=== PATIENT | female | born 1950 | race Two or more races ===

== ENCOUNTER → 2016-05-16 | Outpatient (CLI) | payer OTHER ==
--- NOTE | 2016-05-16 10:40 | RADRPT ---
PROCEDURE: XR left knee. CLINICAL INDICATION: Knee pain TECHNIQUE: 4 views are available for review. COMPARISON: None available FINDINGS: There is severe osteoarthrosis involving the medial tibial femoral compartment and patellofemoral co mpartment and moderate osteoarthrosis involving the lateral tibial femoral compartment. This is asso ciated with joint space narrowing, subchondral sclerosis, varus deformity, lateral displacement of t he tibia on the femur and osteophytosis. There is otherwise normal mineralization, architecture and alignment. No fractures are identified. No osseous lesions are identified. The soft tissues are unremarkable. IMPRESSION: Severe osteoarthrosis involving the medial tibial femoral compartment and patellofemoral compartment and moderate osteoarthrosis involving the lateral tibial femoral compartment. RPTAT: HGDB .Bandar Chery MD, Date Time Electronically viewed and signed by .Bandar Chery MD, on 05/16/2016 10:40 .B/
== END | disposition home or self-care (01) ==
LOC: HKI 09:34
PROVIDERS: ATTEND Orthopaedic Surgery
DX: M17.12 Unilateral primary osteoarthritis, left knee (principal); Z96.651 Presence of right artificial knee joint
CPT/HCPCS: 73564; Z7500; G0463

== ENCOUNTER → 2016-07-08 | Outpatient (CLI) | payer OTHER ==
--- NOTE | 2016-07-08 14:23 | RADRPT ---
PROCEDURE: Limited x-ray of both lower extremities. CLINICAL INDICATION: Bilateral leg pain. TECHNIQUE: Single frontal view of both lower extremities was obtained from the hips to the calves. COMPARISON: None. FINDINGS: The hips are not well seen but appear grossly normal. There is a right knee total arthroplasty. Th ere are severe degenerative changes of the left knee with medial joint compartment narrowing and def ormity. There is mild lateral shift of the tibia. IMPRESSION: 1. Is not well seen. 2. Right knee total arthroplasty. 3. Severe degenerative changes of the left knee. RPTAT: QQ .Kike Vivar MD, MD Date Time Electronically viewed and signed by .Kike Vivar MD, on 07/08/2016 14:23 .R/
== END | disposition home or self-care (01) ==
LOC: HKI 09:51
PROVIDERS: ATTEND Orthopaedic Surgery
DX: M25.562 Pain in left knee (principal); M17.12 Unilateral primary osteoarthritis, left knee; Z96.651 Presence of right artificial knee joint
CPT/HCPCS: 77073; Z7500; G0463

== ENCOUNTER 2016-07-14 10:47 | Inpatient (IN) | payer OTHER ==
[2016-07-14] VITALS (32 sets, daily range): BP systolic 103–131; BP diastolic 55–70; PULSE 68–109; RESP 9–40; Ht 157.5 cm; Wt 81.5 kg
[~2016-07-14] VITALS: Ht 157.5 cm; Wt 81.5 kg
[~2016-07-14 10:47] MED LIST: BUPIVACAINE LIPOSOME/PF 266 MG/20 ML VIAL INFIL ONE; CEFAZOLIN 2GM/50 ML (PMX) 50 ML X1 BEFORE INCISION IVPB ONE; CELECOXIB 400 MG PO X1 DOSE PO ONE; EXPAREL NOTE (BUPIVICAINE LIPOSOMAL) XX SCH; LACTATED RINGER'S 1,000 ML IV SCH; PAIN COCKTAIL-CEFUROXIME IRR ONE; PREGABALIN 300 MG PO X1 PO ONE; SOD CHLORIDE 0.9% IV ONE; SOD CHLORIDE 0.9% IVPB ONE; TRANEXAMIC ACID IV ONE; TRANEXAMIC ACID IVPB ONE; oxyCODONE (CR) 10 MG TAB [oxyCONTIN] X1 DOSE PO ONE; traMADOL 50 MG TAB X 1 DOSE PO ONE
[2016-07-14] MEDS ORDERED: PROPOFOL 100 ML ONE (12:04)
[2016-07-14] MEDS ORDERED: CEFAZOLIN 1 GM INJ ONE (12:04)
[2016-07-14] MEDS ORDERED: METOCLOPRAMIDE 10 MG INJ ONE (12:06)
[2016-07-14] MEDS ORDERED: MIDAZOLAM 1 MG/ML 2 ML INJ ONE (12:06)
[2016-07-14] MEDS ORDERED: FENTAnyl 50 MCG/ML VIAL ONE (12:06)
[2016-07-14] MEDS ORDERED: DEXAMETHASONE 4 MG/ML 1 ML INJ ONE (12:06)
[2016-07-14] MEDS ORDERED: OMEP20CA16 PO (12:34)
[2016-07-14] MEDS ORDERED: LOSA1TAB20 PO (12:34)
[2016-07-14] MEDS ORDERED: AMLO2.5T78 PO (12:34)
[2016-07-14] MEDS ORDERED: LEVO50TA74 PO (12:34)
[2016-07-14] MEDS ORDERED: POLYMYXIN B 500000 UNIT INJ ONE (12:40)
[2016-07-14] MEDS ORDERED: VANCOMYCIN 1 GM INJ ONE (12:40)
[2016-07-14] MEDS ORDERED: SODIUM CL BACTERIOSTATIC 30 ML INJ ONE (12:40)
[2016-07-14] MEDS ORDERED: BACITRACIN 50000 UNITS INJ ONE (12:43)
--- NOTE | 2016-07-14 12:51 | HPN ---
Date/Time of Note Date/Time of Note DATE: 07/14/16 TIME: 12:50 Interval H&P Admission Note Pt. seen H&P reviewed: No system changes No change from [facility] on 07/07/16 by CYNTHIA Mckeon ERIK N. MD Jul 14, 2016 12:51
[2016-07-14] MEDS ORDERED: ONDANSETRON 4 MG INJ ONE (13:28)
[2016-07-14] MEDS ORDERED: SUCCINYLCHOLINE CHLORIDE 100 MG/5 ML SYG IV ONE (13:40)
[2016-07-14] MEDS ORDERED: EPHEDrine SULFATE 50 MG/5 ML SYG ONE (13:59)
[2016-07-14] MEDS ORDERED: hydrALAzine 20 MG INJ IV PRN (14:00)
[2016-07-14] MEDS ORDERED: DIPHENHYDRAMINE 50 MG INJ IV PRN (14:00)
[2016-07-14] MEDS ORDERED: METOCLOPRAMIDE 10 MG INJ IV PRN (14:00)
[2016-07-14] MEDS ORDERED: MEPERIDINE 25 MG INJ IV PRN (14:00)
[2016-07-14] MEDS ORDERED: LABETALOL HCL 20MG INJ IV PRN (14:00)
[2016-07-14] MEDS ORDERED: ONDANSETRON 4 MG INJ IV PRN ×2 (14:00→18:30)
[2016-07-14] MEDS ORDERED: HYDROmorphONE (0.2 MG/ML) 10ML SYG IV PRN ×3 (14:00)
[2016-07-14] MEDS ORDERED: BISACODYL 10 MG SUPP PR PRN (15:30)
[2016-07-14] MEDS ORDERED: ASPIRIN (EC) 325 MG TAB PO ONE (15:30)
[2016-07-14] MEDS ORDERED: NA PHOSPHATE/BIPHOS 133 ML ENEMA PR PRN (15:30)
[2016-07-14] MEDS ORDERED: NACL 0.9% 3 ML SYG IV SCH (15:30)
[2016-07-14] MEDS ORDERED: MAGNESIUM HYDROXIDE 30ML CUP PO PRN (15:30)
--- NOTE | 2016-07-14 15:42 | OPR ---
Date/Time of Note Date/Time of Note DATE: 07/14/16 TIME: 15:40 Operative Report Free Text/Dictation Dictation # [id number] Procedure Date: Jul 14, 2016 Preoperative Diagnosis Left Knee OA Postoperative Diagnosis Same Operation Performed Left TKA Surgeon: KRISTYN BUTLER MD printing assistant: ISAAK BALL PA-C Anesthesia: general, spinal Anesthesiologist: FAHEEM STEWART MD Tourniquet Time: 51 minutes Estimated Blood Loss: 50 - 100 ml's Specimens Bone and soft tissue Tubes/Drains Hemovac x 1 Complications: None Pt Condition Post Procedure: stable KRISTYN BUTLER MD Jul 14, 2016 15:42
[2016-07-14 15:50] LABS: HEMATOCRIT 34.9 % (37.0-47.0); HEMOGLOBIN 11.5 g/dl (12.0-16.0)
--- NOTE | 2016-07-14 16:01 | OPR ---
DATE OF OPERATION: 07/14/2016 PREOPERATIVE DIAGNOSIS: Left knee osteoarthritis. POSTOPERATIVE DIAGNOSIS: Left knee osteoarthritis. OPERATION PERFORMED: Left total knee arthroplasty. SURGEON: Kristyn Turcios MD PIT FURNACE MELTER: MCKENZIE Mckinney COMPONENTS USED: DePuy Attune size 4 narrow femoral component, size 3 tibial baseplate, 8 mm polyet hylene insert, and a 32 patellar button. ANESTHESIA: Spinal plus general endotracheal intubation, plus periarticular injection. ANESTHESIOLOGIST: Meghna Park MD TOURNIQUET TIME: 51 minutes. ESTIMATED BLOOD LOSS: 50 mL. INTRAVENOUS FLUIDS: 2 liters of crystalloids. SPECIMENS: Bone and soft tissue. DRAINS: Hemovac x1. COMPLICATIONS: None. DISPOSITION: The patient tolerated the procedure well and was taken to the recovery room in stable condition. INDICATIONS: The patient is a 65-year-old woman who has had progressive worsening pain in the left knee with radiographic evidence of severe osteoarthritis. She has failed nonsurgical means of treat ment to control her pain including activity modifications, pain medications, intra-articular injecti ons and ambulatory assist devices. Despite these measures, she has had worsening pain and I felt sh e would benefit from a total knee arthroplasty. The risks, benefits, and alternatives of the procedure were explained in detail to the patient. I e xplained the risks of the surgery to include but not be limited to, bleeding and possible need for b lood transfusion; infection; pain; stiffness; neurovascular injury with possible numbness, weakness, and/or paralysis anywhere from the knee down to the toes; fracture; instability; dislocation; wear and/or loosening of the prosthesis and possible need for future revision; blood clots; pulmonary emb olism; and anesthetic complications such as heart attack, stroke, GI bleed, pneumonia, and/or . Ample time was allowed for the patient to ask questions, all of which were addressed and answered. The patient understood the risks involved and wished to proceed. Informed consent was signed prior to the procedure. PROCEDURE: The patient's left knee was initialed with a marking pen in the preoperative area to khris ntify the correct operative site. The patient was brought to the operating room and transferred fro [facility] to the operating table where a spinal anesthetic was administered. T he patien t was then anesthetized and intubated. A Reis catheter was placed. A timeout was performed to con firm that the left leg was the correct operative site. The patient was given 2 g of Ancef within on e hour prior to the procedure. A tourniquet was placed on the operative proximal thigh. The operat afsaneh knee and lower extremity were prepped and draped in the usual sterile fashion. The operative lo wer extremity was elevated and exsanguinated with an Esmarch tourniquet. The proximal thigh tourniq uet was inflated to 300 mmHg. The knee was flexed. A midline incision was made and carried down through the subcutaneous tissue a nd fat with sharp dissection. Limited medial and lateral flaps were raised. A median parapatellar arthrotomy approach was performed. Synovial fluid was normal in color and consistency. The patella was everted and the knee flexed. There were severe tricompartmental osteoarthritic changes noted. A medial release was performed at the joint line to the midcoronal plane. The ACL and PCL and remnan ts of the menisci were excised. The stepped drill was used to open up the femoral canal which was i rrigated and sucked dry. The intramedullary guide susannah was passed up the femur, and the distal cutti ng block was pinned into place for a 6 degree valgus cut, taking 10 mm of bone off distally. The osc illating saw was used to make the cut. The tibia was subluxed anteriorly. The tibial cutoff jig was placed over the center of the talus d istally and over the junction of the medial and middle third of the tibial tubercle proximally. The guide was pinned into place and the oscillating saw was used to make the cut. The tibia was sized. The extension gap was checked and accommodated the 8 mm spacer block with the knee in full extensio n. There was no varus or valgus instability. At this point, the femur was sized with the posterior referencing guide. Two holes were drilled in 3 degrees of external rotation. The two holes were in line with the transepicondylar axis, perpendi cular to [place]'s line, and in line with the tibial cutoff jig brought up with the knee flexed 90 degrees and tensed with 2 lamina spreaders, suggesting the femoral rotation was correct. The four- in-one cutting block was pinned into place. The anterior and posterior cuts and chamfer cuts were m osorio with the oscillating saw. The flexion gap was checked and accommodated the 8 mm spacer block at 90 degrees. There was no varus or valgus instability, suggesting the flexion and extension gaps we re now equal. The central box was cut out on the femur. The tibia was drilled and punched in proper rotation. Tri al components were placed into position with a trial insert. The patella was cut from 21 mm down to 13 mm and sized. Three holes were drilled and the trial button placed in position. With all the t rials now in place, the knee was taken through range of motion and came to full extension as evidenc ed by the fact that with the foot on my abdomen and axial loading, there was no tendency for the kne e to flex. The knee was able to be flexed to 125 degrees with good patellar tracking with no latera l tilt or subluxation. At this point, I was satisfied with the overall range of motion, stability, and patellar tracking. The trials were removed. The real components were opened. Two bags of cement were mixed, one with and one without premixed antibiotic. The knee was irrigated with antibiotic saline and sucked dry. Once the cement was in a doughy stage, the real components were cemented into place. The knee was held in full extension, and the patellar component was held with a patellar clamp. All excess cemen t was removed with curettes. As the cement was hardening, the synovial/capsular layer was infiltrat ed with a mixture of 150 mg of 0.5% bupivacaine, 8 mg of Duramorph, 300 mcg of epinephrine, 30 mg of Toradol, 100 mcg of clonidine, 750 mg of cefuroxime and 86 mL of normal saline, followed by an inje ction of 266 mg of liposomal bupivacaine. A Hemovac drain was placed in the deep portion of the wound and brought out the anterolateral thigh. Once the cement was completely hardened, the trial liner was removed, and the real insert was open ed. The tourniquet was let down, and there was good hemostasis. The knee was then irrigated with a mixture of Betadine/saline and then antibiotic saline with pulsatile lavage. The real insert was impacted into the tibia and reduced onto to the femur. The arthrotomy was closed with a few interrupted #1 Ethibond in a [id number] fashion, and then closed in a watertight fashion with a running #2 Stratafix suture. Knee flexion was checked against gravity and came to 125 degrees. The subcutaneous layer was irrigated and closed with 2-0 Stratafi x, and then 3-0 Vicryl and then irina on the skin. The wound was covered with an occlusive dressi ng, and secured with cast padding and a bias dressing. The drain was secured with 3-0 nylon. The sponge and needle counts were correct at the end of the case. The patient was then awakened, ex tubated, and taken to the recovery room in stable condition. Dictated By: KRISTYN DUMONT/NTS Conf#: [id number] DID#: [id number]
[2016-07-14] MEDS: CEFAZOLIN 2 GM/50 ML (PMX) 50 ML IVPB SCH ×2 (16:26→23:11)
--- NOTE | 2016-07-14 16:29 | CONS ---
DATE OF ADMISSION: 07/14/2016 DATE OF CONSULTATION: 07/14/2016 IDENTIFICATION: This is a 65-year-old female. CHIEF COMPLAINT: Request for medical management status post left total knee replacement. HISTORY OF PRESENT ILLNESS: This is a 65-year-old female with past medical history based on records of obesity, osteoarthritis, hypothyroidism. hypertension and GERD who underwent left total knee rep lacement earlier today. Most of the information is obtained from the chart documentation as the pa mejia is presently in postop recovery somewhat lethargic. Apparently, the patient had been having l eft knee pain for many years and she has been followed by the orthopedic surgery team as an outpatie nt. Cortisone to cortisone steroid injections were attempted to help relieve the patient's symptoms ; however, apparently, this did not relieve the symptoms completely, so the decision was made for th e patient to undergo left total knee replacement which the patient had done earlier today. Presentl y, the patient is lying in bed, recovering from surgery, full review of systems cannot be obtained a t this time. PAST MEDICAL HISTORY: As stated above. ALLERGIES: NO KNOWN DRUG ALLERGIES. MEDICATIONS AT HOME: 1. Amlodipine 5 mg daily. 2. Losartan/hydrochlorothiazide 100/25 one tab daily. 3. Omeprazole 20 mg daily. 4. Levothyroxine 50 mcg every morning. PAST SURGICAL HISTORY: She had a right total knee replacement in the past. SOCIAL HISTORY: Negative for smoking, drinking, or IV drug abuse. FAMILY HISTORY: Noncontributory. PHYSICAL EXAMINATION: VITAL SIGNS: T-max 98.9, pulse 79 to 99, respirations 16, blood pressure is 112/57, saturating at 9 7% on 3 liters nasal cannula. GENERAL: The patient lying in bed, presently getting x-ray of the left knee, somewhat lethargic, in no acute distress. HEENT: Pupils equal, round, react to light. Extraocular muscles intact. NECK: Supple, no thyromegaly. LUNGS: Clear to auscultation bilaterally. CARDIOVASCULAR: S1, S2 heard. No rubs or gallops. ABDOMEN: Soft, nontender, nondistended. Normal bowel sounds. No rebound or guarding. MUSCULOSKELETAL: Decreased range of motion of left lower extremity. No lower extremity edema bilate rally. NEUROLOGIC: No focal deficits. LABORATORIES: There is no new CBC or BMP this admission presently. IMAGING: Left knee x-ray is pending. ASSESSMENT AND PLAN: A 55-year-old female status post left total knee replacement secondary to oste oarthritis. 1. Knee pain status post left total knee replacement. Continue to follow primary care team's recom mendations including pain control medications, physical therapy and labs. 2. Obesity: Monitor for now. 3. Hypothyroidism: Patient has been resumed on Synthroid medication. 4. Hypertension: Continue current blood pressure medicines as ordered by primary team. 5. Gastrointestinal prophylaxis: PPI. 6. Deep venous thrombosis prophylaxis: The patient is on high dose aspirin b.i.d. 7. History of gastroesophageal reflux disease: Again she is on PPI. We will continue to follow along with you. Dictated By: ANJELICA MARTINEZ Conf#: [id number] DID#: [id number]
[2016-07-14 16:44] LABS: CREATININE 0.54 mg/dl (0.44-1.00); POTASSIUM 3.1 mmol/L (3.5-5.1)
[2016-07-14 16:45] LABS: CALCIUM 8.7 mg/dl (8.4-10.2)
[2016-07-14] MEDS: traMADol 50 MG TAB PO SCH ×3 (17:34→23:11)
--- NOTE | 2016-07-14 18:02 | RADRPT ---
PROCEDURE: XR Left Knee. CLINICAL INDICATION: Left knee pain. Postop. TECHNIQUE: Two views. Frontal and lateral. COMPARISON: 05/16/2016. FINDINGS: There is no fracture or dislocation. Anterior skin irina and surgical drain are noted. Gas is present in the soft tissues anteriorly f rom the recent surgery. There is a total left knee arthroplasty which appears satisfactory. There is no lytic or blastic lesion. There is no joint effusion. IMPRESSION: 1. Satisfactory postoperative appearance of the left knee. RPTAT: QQ .Kike Vivar MD, MD Date Time Electronically viewed and signed by .Kike Vivar MD, MD on 07/14/2016 18:02 .R/
--- NOTE | 2016-07-14 18:08 | PN ---
Date/Time of Note Date/Time of Note DATE: 07/14/16 TIME: 18:05 Assessment/Plan Lines/Catheters IV Catheter Type (from Nrsg): Peripheral IV Bañuelos in Place (from Nrsg): Yes Assessment/Plan Assessment/Plan Stable in PACU, s/p left TKA -continue abx until drains removed -pain meds as needed -ASA/SCDs for DVT prophylaxis -OOB with PT -check AM labs -monitor drain -d/c bañuelos in AM XR of the left knee reveals good alignment with no evidence of fracture or dislocation Subjective 24 Hr Interval Summary Stable in PACU. Denies pain. Moving all extremities. Exam/Review of Systems Vital Signs Vitals Vital Signs Date Time Temp Pulse Resp B/P Pulse Ox O2 Delivery O2 Flow Rate FiO2 07/14/16 16:56 98 9 107/61 98 Nasal Cannula 2.0 07/14/16 16:52 98.0 Exam Free Text/Dictation Hemovac: minimal Dressing dry Incision clean, dry, and intact without redness or drainage Thigh soft 5/5 Quadriceps, Tibialis Anterior, EHL, Gastroc, Soleus, Peroneals Normal sensation Palpable DT/PT, CR <2 sec No distal edema Results Result Diagram: 07/14/16 1535 07/14/16 1535 ISAAK BALL PA-C Jul 14, 2016 18:08
[2016-07-14] MEDS: PANTOPRAZOLE (EC) 40 MG TAB PO SCH (18:16)
[2016-07-14] MEDS: ACETAMINOPHEN 1000MG/100ML IV 100 ML IVPB SCH (18:16)
[2016-07-14] MEDS: LACTATED RINGER'S 1,000 ML IV SCH ×2 (18:17→23:10)
[2016-07-14] MEDS ORDERED: HYDROmorphONE 1 MG/ML SYG IV PRN (18:30)
[2016-07-14] MEDS ORDERED: oxyCODONE 5 MG TAB PO PRN ×2 (18:30)
[2016-07-14] MEDS ORDERED: DIPHENHYDRAMINE 25 MG CAP PO PRN (18:30)
[2016-07-14] MEDS ORDERED: TRANEXAMIC ACID 820 MG in SOD CHLORIDE 0.9% 100 ML IVPB ONE ×2 (18:30→21:30)
[2016-07-14] MEDS: PREGABALIN 50 MG CAP PO SCH (20:05)
[2016-07-14] MEDS: DOCUSATE SODIUM 100 MG CAP PO SCH (20:05)
[2016-07-14] MEDS ORDERED: POTASSIUM CHLORIDE (SR) 20 MEQ TAB PO STA (21:46)
[2016-07-15] MEDS: ACETAMINOPHEN 1000MG/100ML IV 100 ML IVPB SCH ×3 (00:08→12:25)
[2016-07-15 05:04] LABS: HEMATOCRIT 35.6 % (37.0-47.0); HEMOGLOBIN 11.6 g/dl (12.0-16.0)
[2016-07-15 05:11] LABS: POTASSIUM 4.4 mmol/L (3.5-5.1)
[2016-07-15 05:13] LABS: CREATININE 0.47 mg/dl (0.44-1.00)
[2016-07-15 05:14] LABS: CALCIUM 8.8 mg/dl (8.4-10.2)
[2016-07-15] MEDS: traMADol 50 MG TAB PO SCH ×4 (05:20→23:28)
[2016-07-15] MEDS: PANTOPRAZOLE (EC) 40 MG TAB PO SCH ×2 (05:20→17:33)
[2016-07-15] MEDS: LACTATED RINGER'S 1,000 ML IV SCH ×3 (06:11→21:56)
[2016-07-15] MEDS: LEVOTHYROXINE 50 MCG TAB PO SCH (06:11)
[2016-07-15] MEDS: CEFAZOLIN 2 GM/50 ML (PMX) 50 ML IVPB SCH (07:43)
[2016-07-15 08:00] VITALS: BP 109/58; RESP 18
[2016-07-15 08:45] VITALS: BP 114/56; PULSE 65; RESP 20
[2016-07-15] MEDS: CELECOXIB 200 MG CAP PO SCH (08:57)
[2016-07-15] MEDS: PREGABALIN 50 MG CAP PO SCH ×2 (08:57→20:56)
[2016-07-15] MEDS: DOCUSATE SODIUM 100 MG CAP PO SCH ×2 (08:57→20:56)
[2016-07-15] MEDS: ASPIRIN (EC) 325 MG TAB PO SCH ×2 (08:57→20:56)
[2016-07-15] MEDS: AMLODIPINE 2.5 MG TAB PO SCH (08:58)
[2016-07-15] MEDS: LOSARTAN 50 MG TAB PO SCH (08:58)
[2016-07-15] MEDS: HYDROCHLOROTHIAZIDE 25 MG TAB PO SCH (08:59)
--- NOTE | 2016-07-15 09:07 | PN ---
Date/Time of Note Date/Time of Note DATE: 07/15/16 TIME: 09:06 Assessment/Plan Lines/Catheters IV Catheter Type (from Nrsg): Peripheral IV Reis in Place (from Nrsg): Yes Assessment/Plan Assessment/Plan Stable POD #1, s/p left TKA -d/c abx -pain meds as needed -ASA/SCDs -OOB with PT -drain removed -check AM labs -discharge planning. Will plan to go home upon discharge Subjective 24 Hr Interval Summary No acute overnight events. Denies pain. Did not start PT yesterday. VSS, afebrile. Will plan to go home upon discharge Exam/Review of Systems Vital Signs Vitals Vital Signs Date Time Temp Pulse Resp B/P Pulse Ox O2 Delivery O2 Flow Rate FiO2 07/15/16 08:00 98.7 67 18 109/58 97 07/14/16 23:28 Room Air 2.0 Intake and Output 07/14/16 07/14/16 07/15/16 15:00 23:00 07:00 Intake Total 1200 ml 1358.2 ml 500 ml Output Total 40 ml 510 ml 1450 ml Balance 1160 ml 848.2 ml -950 ml Exam Free Text/Dictation Hemovac: 100cc Dressing dry Incision clean, dry, and intact without redness or drainage Thigh soft 5/5 Quadriceps, Tibialis Anterior, EHL, Gastroc, Soleus, Peroneals Normal sensation Palpable DT/PT, CR <2 sec No distal edema Results Result Diagram: 07/15/1642907/15/16429 ISAAK BALL PA-C Jul 15, 2016 09:07
[2016-07-15 10:08] LABS: ADD UMIC NO; URINE BILIRUBIN (Dip) NEGATIVE (NEGATIVE); URINE BLOOD (Dip) NEGATIVE (NEGATIVE); URINE COLOR LT. YELLOW (YELLOW); URINE GLUCOSE (Dip) NEGATIVE (NEGATIVE); URINE KETONES (Dip) NEGATIVE (NEGATIVE); URINE LEUKOCYTE ESTERASE (Dip) NEGATIVE (NEGATIVE); URINE NITRITE (Dip) NEGATIVE (NEGATIVE); URINE TOTAL PROTEIN (Dip) NEGATIVE (NEGATIVE); URINE UROBILINOGEN (Dip) 0.2 E.U./dL (0.1-1.0)
--- NOTE | 2016-07-15 11:50 | CONS ---
Date/Time of Note Date/Time of Note DATE: 07/15/16 TIME: 11:49 Consult Date/Type/Reason Admit Date/Time Jul 14, 2016 at 10:47 Initial Consult Date Subjective Pt worked with [facility] per nursing. Objective Vital Signs Date Time Temp Pulse Resp B/P Pulse Ox O2 Delivery O2 Flow Rate FiO2 07/15/16 08:45 65 20 114/56 98 Room Air 07/15/16 08:00 98.7 07/14/16 23:28 2.0 Intake and Output 07/14/16 07/14/16 07/15/16 15:00 23:00 07:00 Intake Total 1200 ml 1358.2 ml 500 ml Output Total 40 ml 510 ml 1450 ml Balance 1160 ml 848.2 ml -950 ml Exam GENERAL: The patient lying in bed, presently getting x-ray of the left knee, somewhat lethargic, in no acute distress. HEENT: Pupils equal, round, react to light. Extraocular muscles intact. NECK: Supple, no thyromegaly. LUNGS: Clear to auscultation bilaterally. CARDIOVASCULAR: S1, S2 heard. No rubs or gallops. ABDOMEN: Soft, nontender, nondistended. Normal bowel sounds. No rebound or guarding. MUSCULOSKELETAL: Decreased range of motion of left lower extremity. No lower extremity edema bilaterally. NEUROLOGIC: No focal deficits. Results/Medications Result Diagram: 07/15/16 0430 07/15/16 0430 Results 24 hrs Laboratory Tests Test 07/14/16 15:35 07/15/16 04:30 07/15/16 05:30 Hemoglobin 11.5 L 11.6 L Hematocrit 34.9 L 35.6 L Sodium Level 139 138 Potassium Level 3.1 L 4.4 Chloride Level 101 99 Carbon Dioxide Level 29 31 Anion Gap 12 12 Blood Urea Nitrogen 11 12 Creatinine 0.54 0.47 Glucose Level 188 177 Calcium Level 8.7 8.8 Urine Color LT. YELLOW Urine Clarity CLEAR Urine pH 6.0 Urine Specific Odin 1.020 Urine Ketones NEGATIVE Urine Nitrite NEGATIVE Urine Bilirubin NEGATIVE Urine Urobilinogen 0.2 E.U./dL Urine Leukocyte Esterase NEGATIVE Urine Hemoglobin NEGATIVE Urine Glucose NEGATIVE Urine Total Protein NEGATIVE Medications Current Medications Amlodipine Besylate (Norvasc) 5 mg DAILY PO Last administered on 07/15/16t 08: 58; Admin Dose 5 MG; Start 07/15/16 at 09:00 Losartan Potassium 100 mg 100 mg DAILY PO Last administered on 07/15/16 08:58 ; Admin Dose 100 MG; Start 07/15/16 at 09:00 Lactated Ringer's (Lr) 1,000 ml @ 125 mls/hr Q8H IV Last administered on 06:11; Admin Dose 125 MLS/HR; Start 07/14/16 at 15:19 Celecoxib 200 mg 200 mg DAILY PO Last administered on 07/15/16 08:57; Admin Dose 200 MG; Start 07/15/16 at 09:00 Acetaminophen (Ofirmev 1000mg/ 100ml Iv) 100 ml @ 400 mls/hr Q6 IVPB Last administered on 07/15/16 05:20; Admin Dose 400 MLS/HR; Start 07/14/16 at 18:00 ; Stop 07/15/16 at 17:59 Tramadol HCl (Ultram) 50 mg Q6 PO Last administered on 07/15/16 05:20; Admin Dose 50 MG; Start 07/14/16 at 12:00; Stop 07/17/16 at 11:59 Oxycodone HCl (Roxicodone) 5 mg Q4H PRN PO PAIN LEVEL 1-3; Start 07/14/16 at 18 :30 Oxycodone HCl (Roxicodone) 10 mg Q4H PRN PO PAIN LEVEL 4-7; Start 07/14/16 at 18:30 Hydromorphone HCl (Dilaudid) 1 mg Q3H PRN IV PAIN LEVEL 8-10; Start 07/14/16 at 18:30 Ondansetron HCl (Zofran Inj) 4 mg Q6H PRN IV NAUSEA AND/OR VOMITING Last administered on 07/15/16 07:43; Admin Dose 4 MG; Start 07/14/16 at 18:30 Bisacodyl (Dulcolax Supp) 10 mg Q12H PRN [place] CONSTIPATION; Start 07/14/16 at 15: 30 Magnesium Hydroxide (Milk Of Mag) 30 ml BID PRN PO CONSTIPATION; Start at 15:30 Sodium Biphosphate/ Sodium Phosphate (Fleet Enema) 133 ml DAILY PRN [place] CONSTIPATION; Start 07/14/16 at 15:30 Docusate Sodium (Colace) 100 mg BID PO Last administered on 07/15/16 08:57; Admin Dose 100 MG; Start 07/14/16 at 21:00 Diphenhydramine HCl (Benadryl) 25 mg Q6H PRN PO PRURITUS; Start 07/14/16 at 18: 30 Aspirin (Ecotrin) 325 mg BID PO Last administered on 07/15/16 08:57; Admin Dose 325 MG; Start 07/15/16 at 09:00 Pantoprazole (Protonix Tab) 40 mg BID@06,18 PO Last administered on 07/15/16 05:20; Admin Dose 40 MG; Start 07/14/16 at 18:00 Pregabalin (Lyrica) 50 mg BID PO Last administered on 07/15/16 08:57; Admin Dose 50 MG; Start 07/14/16 at 21:00 Hydrochlorothiazide (Hydrochlorothiazide) 25 mg DAILY PO Last administered on 08:59; Admin Dose 25 MG; Start 07/15/16 at 09:00 Assessment/Plan Chief Complaint/Hosp Course ASSESSMENT AND PLAN: 55-year-old female status post left total knee replacement secondary to osteoarthritis POD # 1. 1. Knee pain status post left total knee replacement - POD # 1 - Continue to follow primary care team's recommendations including pain control medications, physical therapy and labs. 2. Obesity: Monitor for now. 3. Hypothyroidism: Patient has been resumed on Synthroid medication. 4. Hypertension: Continue current blood pressure medicines as ordered by primary team. 5. Gastrointestinal prophylaxis: PPI. 6. Deep venous thrombosis prophylaxis: The patient is on high dose aspirin b.i.d. 7. History of gastroesophageal reflux disease - PPI. We will continue to follow along with you. Problems: ANJELICA GALLO Jul 15, 2016 11:50
--- NOTE | 2016-07-15 16:14 | PDOCDIS ---
Discharge Instructions DIAGNOSIS Discharge Diagnosis: s/p left TKA CONDITION Patient Condition: Good HOME CARE INSTRUCTIONS: Diet Instructions: Regular ACTIVITY: Activity Restrictions: Slowly Increase Activity Rest between Activity Avoid heavy lifting Do not operate Machinery Do not operate Power Tool Avoid Heavy Housework Keep Limb Elevated Bathing Restrictions: Shower FOLLOW UP/APPOINTMENTS Appointments follow up in the office on 07/25/16 OTHER ORDERS: Other Orders: S/P TKA Physical Therapy: Three times per week at home x 2 weeks Daily in Rehab/SNF WB STATUS: WBAT 1. Strengthening exercises for both upper and un-operated lower extremities. 2. Gait training with front wheeled walker 3. Active range of motion exercises to operative knee. 4. When not working on knee range of motion exercises, distal towel roll under operative ankle/distal calf to promote full extension. 5. DO NOT PUT ANYTHING BEHIND OPERATIVE KNEE!!! 6. Quadriceps and hamstring strengthening. 7. May switch to cane in contra lateral hand 6 weeks after surgery. 8. Physical Therapy can open case if nursing is not available. 9. Use Ice Machine as instructed from date of surgery while at rest 3X/day. 10. Patient requires mobile SCDs to reduce risk of developing DVT following TKA. Patient will use the mobile SCDs for 30 days postoperatively. Bathing assistance by home health aide twice weekly if Medicare patient. Occupational Therapy: Evaluation for assistive devices and ADL training. Wound Care: Keep incision dry & covered with Tegaderm until first visit with Dr. Turcios Anticoagulation Orders: Enteric Coated Aspirin 325 mg po bid x 6 weeks from date of surgery Follow-up:Call for an appointment with Dr. Turcios in 1 week after discharged from hospital at DME Orders: SELENA, 3-in-1 Commode, Polar ice machine, Mobile SCDs ISAAK BALL PA-C Jul 15, 2016 16:14
[2016-07-15] MEDS ORDERED: ASPI325T32 PO (16:15)
[2016-07-15] MEDS ORDERED: HYDR-905 PO (16:15)
[2016-07-15] MEDS ORDERED: TRAM50TA2 PO (16:15)
[2016-07-15] MEDS ORDERED: PREG50CA PO (16:15)
--- NOTE | 2016-07-15 17:13 | PN ---
Date/Time of Note Date/Time of Note DATE: 07/15/16 TIME: 17:10 Assessment/Plan VTE Prophylaxis VTE Prophylaxis Intervention: SCD's Lines/Catheters IV Catheter Type (from Nrs): Peripheral IV Urinary Cath still in place: Yes Subjective 24 Hr Interval Summary Free Text/Dictation Anesthesia Note: A 65 year female s/p left knee arthroplasty underGA and spinal, pod #1 doing good. no pain, headache, itching. this morning felt nauseous after a medicine was given which was resolved with antiemetic. back is clean. further care by surgery team. Exam/Review of Systems Vital Signs Vitals Vital Signs Date Time Temp Pulse Resp B/P Pulse Ox O2 Delivery O2 Flow Rate FiO2 07/15/16 08:45 65 20 114/56 98 Room Air 07/15/16 08:00 98.7 07/14/16 23:28 2.0 Intake and Output 07/14/16 07/14/16 07/15/16 15:00 23:00 07:00 Intake Total 1200 ml 1358.2 ml 500 ml Output Total 40 ml 510 ml 1450 ml Balance 1160 ml 848.2 ml -950 ml Results Result Diagram: 07/15/16 0430 07/15/16 0430 Results 24 hrs Laboratory Tests Test 07/15/16 04:30 07/15/16 05:30 Hemoglobin 11.6 L Hematocrit 35.6 L Sodium Level 138 Potassium Level 4.4 Chloride Level 99 Carbon Dioxide Level 31 Anion Gap 12 Blood Urea Nitrogen 12 Creatinine 0.47 Glucose Level 177 Calcium Level 8.8 Urine Color LT. YELLOW Urine Clarity CLEAR Urine pH 6.0 Urine Specific [place] 1.020 Urine Ketones NEGATIVE Urine Nitrite NEGATIVE Urine Bilirubin NEGATIVE Urine Urobilinogen 0.2 E.U./dL Urine Leukocyte Esterase NEGATIVE Urine Hemoglobin NEGATIVE Urine Glucose NEGATIVE Urine Total Protein NEGATIVE Medications Medications Current Medications Amlodipine Besylate (Norvasc) 5 mg DAILY PO Last administered on 07/15/16 08: 58; Admin Dose 5 MG; Start 07/15/16 at 09:00 Losartan Potassium 100 mg 100 mg DAILY PO Last administered on 07/15/16 08:58 ; Admin Dose 100 MG; Start 07/15/16 at 09:00 Lactated Ringer's (Lr) 1,000 ml @ 125 mls/hr Q8H IV Last administered on 06:11; Admin Dose 125 MLS/HR; Start 07/14/16 at 15:19 Celecoxib 200 mg 200 mg DAILY PO Last administered on 07/15/16 08:57; Admin Dose 200 MG; Start 07/15/16 at 09:00 Acetaminophen (Ofirmev 1000mg/ 100ml Iv) 100 ml @ 400 mls/hr Q6 IVPB Last administered on 07/15/16 12:25; Admin Dose 400 MLS/HR; Start 07/14/16 at 18:00 ; Stop 07/15/16 at 17:59 Tramadol HCl (Ultram) 50 mg Q6 PO Last administered on 07/15/16 12:25; Admin Dose 50 MG; Start 07/14/16 at 12:00; Stop 07/17/16 at 11:59 Oxycodone HCl (Roxicodone) 5 mg Q4H PRN PO PAIN LEVEL 1-3; Start 07/14/16 at 18 :30 Oxycodone HCl (Roxicodone) 10 mg Q4H PRN PO PAIN LEVEL 4-7; Start 07/14/16 at 18:30 Hydromorphone HCl (Dilaudid) 1 mg Q3H PRN IV PAIN LEVEL 8-10; Start 07/14/16 at 18:30 Ondansetron HCl (Zofran Inj) 4 mg Q6H PRN IV NAUSEA AND/OR VOMITING Last administered on 07/15/16 07:43; Admin Dose 4 MG; Start 07/14/16 at 18:30 Bisacodyl (Dulcolax Supp) 10 mg Q12H PRN [place] CONSTIPATION; Start 07/14/16 at 15: 30 Magnesium Hydroxide (Milk Of Mag) 30 ml BID PRN PO CONSTIPATION; Start at 15:30 Sodium Biphosphate/ Sodium Phosphate (Fleet Enema) 133 ml DAILY PRN [place] CONSTIPATION; Start 07/14/16 at 15:30 Docusate Sodium (Colace) 100 mg BID PO Last administered on 07/15/16 08:57; Admin Dose 100 MG; Start 07/14/16 at 21:00 Diphenhydramine HCl (Benadryl) 25 mg Q6H PRN PO PRURITUS; Start 07/14/16 at 18: 30 Aspirin (Ecotrin) 325 mg BID PO Last administered on 07/15/16 08:57; Admin Dose 325 MG; Start 07/15/16 at 09:00 Pantoprazole (Protonix Tab) 40 mg BID@06,18 PO Last administered on 07/15/16 05:20; Admin Dose 40 MG; Start 07/14/16 at 18:00 Pregabalin (Lyrica) 50 mg BID PO Last administered on 07/15/16 08:57; Admin Dose 50 MG; Start 07/14/16 at 21:00 Hydrochlorothiazide (Hydrochlorothiazide) 25 mg DAILY PO Last administered on 08:59; Admin Dose 25 MG; Start 07/15/16 at 09:00 FAHEEM STEWART MD Jul 15, 2016 17:13
[2016-07-15 19:00] VITALS: BP 122/60; RESP 19
[2016-07-15 19:51] VITALS: BP 117/68; PULSE 72; RESP 18
[2016-07-16 05:26] LABS: HEMOGLOBIN 10.8 g/dl (12.0-16.0)
[2016-07-16 05:36] LABS: POTASSIUM 4.3 mmol/L (3.5-5.1)
[2016-07-16 05:39] LABS: CREATININE 0.62 mg/dl (0.44-1.00)
[2016-07-16 05:40] LABS: CALCIUM 8.2 mg/dl (8.4-10.2)
[2016-07-16] MEDS: PANTOPRAZOLE (EC) 40 MG TAB PO SCH ×2 (06:04→18:23)
[2016-07-16] MEDS: traMADol 50 MG TAB PO SCH ×4 (06:04→23:54)
[2016-07-16] MEDS: LEVOTHYROXINE 50 MCG TAB PO SCH (06:04)
[2016-07-16] MEDS: LACTATED RINGER'S 1,000 ML IV SCH ×3 (06:05→22:13)
[2016-07-16 07:57] VITALS: BP 108/56; RESP 15
[2016-07-16] MEDS: PREGABALIN 50 MG CAP PO SCH ×2 (08:39→20:28)
[2016-07-16] MEDS: AMLODIPINE 2.5 MG TAB PO SCH (08:39)
[2016-07-16] MEDS: CELECOXIB 200 MG CAP PO SCH (08:39)
[2016-07-16] MEDS: ASPIRIN (EC) 325 MG TAB PO SCH ×2 (08:39→20:28)
[2016-07-16] MEDS: DOCUSATE SODIUM 100 MG CAP PO SCH ×2 (08:40→20:28)
[2016-07-16] MEDS: LOSARTAN 50 MG TAB PO SCH (08:40)
[2016-07-16] MEDS: HYDROCHLOROTHIAZIDE 25 MG TAB PO SCH (08:40)
--- NOTE | 2016-07-16 10:02 | PN ---
Date/Time of Note Date/Time of Note DATE: 07/16/16 TIME: 10:01 Assessment/Plan Lines/Catheters IV Catheter Type (from Nrsg): Saline Lock Reis in Place (from Nrsg): Yes Assessment/Plan Assessment/Plan Stable POD #2, s/p left TKA -pain meds as needed. Will switch to [place] from oxycodone -ASA/SCDs for DVT prophylaxis -OOB with PT -dressing changed -check AM labs -d/c planning. Will likely go home tomorrow Subjective 24 Hr Interval Summary No acute overnight events. Mild pain last night to left knee. Progressing with PT. VSS, afebrile. Would like to go home tomorrow. Exam/Review of Systems Vital Signs Vitals Vital Signs Date Time Temp Pulse Resp B/P Pulse Ox O2 Delivery O2 Flow Rate FiO2 07/16/16 07:57 97.7 72 15 108/56 98 07/15/16 19:51 Room Air 07/14/16 23:28 2.0 Intake and Output 07/15/16 07/15/16 07/16/16 15:00 23:00 07:00 Intake Total 150 ml 1700 ml 1000 ml Output Total 1100 ml Balance 150 ml 1700 ml -100 ml Exam Free Text/Dictation Dressing dry Incision clean, dry, and intact without redness or drainage Thigh soft 5/5 Quadriceps, Tibialis Anterior, EHL, Gastroc, Soleus, Peroneals Normal sensation Palpable DT/PT, CR <2 sec No distal edema Results Result Diagram: 07/16/16 0450 07/16/16 0450 ISAAK BALL PA-C Jul 16, 2016 10:02
--- NOTE | 2016-07-16 13:02 | CONS ---
Date/Time of Note Date/Time of Note DATE: 07/16/16 TIME: 13:01 Consult Date/Type/Reason Admit Date/Time Jul 14, 2016 at 10:47 Subjective Seen by ortho team today. Objective Vital Signs Date Time Temp Pulse Resp B/P Pulse Ox O2 Delivery O2 Flow Rate FiO2 07/16/16 07:57 97.7 72 15 108/56 98 07/15/16 19:51 Room Air 07/14/16 23:28 2.0 Intake and Output 07/15/16 07/15/16 07/16/16 15:00 23:00 07:00 Intake Total 150 ml 1700 ml 1000 ml Output Total 1100 ml Balance 150 ml 1700 ml -100 ml Exam GENERAL: The patient lying in bed, in no acute distress. HEENT: Pupils equal, round, react to light. Extraocular muscles intact. NECK: Supple, no thyromegaly. LUNGS: Clear to auscultation bilaterally. CARDIOVASCULAR: S1, S2 heard. No rubs or gallops. ABDOMEN: Soft, nontender, nondistended. Normal bowel sounds. No rebound or guarding. MUSCULOSKELETAL: less decreased range of motion of left lower extremity. No lower extremity edema bilaterally. NEUROLOGIC: No focal deficits. Results/Medications Result Diagram: 07/16/16 0450 07/16/16 0450 Results 24 hrs Laboratory Tests Test 07/16/16 04:50 Hemoglobin 10.8 L Hematocrit 34.0 L Sodium Level 138 Potassium Level 4.3 Chloride Level 100 Carbon Dioxide Level 33 H Anion Gap 9 Blood Urea Nitrogen 16 Creatinine 0.62 Glucose Level 123 # Calcium Level 8.2 L Medications Current Medications Amlodipine Besylate (Norvasc) 5 mg DAILY PO Last administered on 07/16/16 08:39 ; Admin Dose 5 MG; Start 07/15/16 at 09:00 Losartan Potassium 100 mg 100 mg DAILY PO Last administered on 07/16/16 08:40; Admin Dose 100 MG; Start 07/15/16 at 09:00 Lactated Ringer's (Lr) 1,000 ml @ 125 mls/hr Q8H IV Last administered on 06:11; Admin Dose 125 MLS/HR; Start 07/14/16 at 15:19 Celecoxib (Celebrex) 200 mg DAILY PO Last administered on 07/16/16 08:39; Admin Dose 200 MG; Start 07/15/16 at 09:00 Tramadol HCl (Ultram) 50 mg Q6 PO Last administered on 07/16/16 12:35; Admin Dose 50 MG; Start 07/14/16 at 12:00; Stop 07/17/16 at 11:59 Hydromorphone HCl (Dilaudid) 1 mg Q3H PRN IV PAIN LEVEL 8-10 Last administered on 07/15/16 22:47; Admin Dose 1 MG; Start 07/14/16 at 18:30 Ondansetron HCl (Zofran Inj) 4 mg Q6H PRN IV NAUSEA AND/OR VOMITING Last administered on 07/15/16 07:43; Admin Dose 4 MG; Start 07/14/16 at 18:30 Bisacodyl (Dulcolax Supp) 10 mg Q12H PRN [place] CONSTIPATION; Start 07/14/16 at 15: 30 Magnesium Hydroxide (Milk Of Mag) 30 ml BID PRN PO CONSTIPATION; Start at 15:30 Sodium Biphosphate/ Sodium Phosphate (Fleet Enema) 133 ml DAILY PRN [place] CONSTIPATION; Start 07/14/16 at 15:30 Docusate Sodium (Colace) 100 mg BID PO Last administered on 07/16/16 08:40; Admin Dose 100 MG; Start 07/14/16 at 21:00 Diphenhydramine HCl (Benadryl) 25 mg Q6H PRN PO PRURITUS; Start 07/14/16 at 18: 30 Aspirin (Ecotrin) 325 mg BID PO Last administered on 07/16/16 08:39; Admin Dose 325 MG; Start 07/15/16 at 09:00 Pantoprazole (Protonix Tab) 40 mg BID@06,18 PO Last administered on 07/16/16 06 :04; Admin Dose 40 MG; Start 07/14/16 at 18:00 Pregabalin (Lyrica) 50 mg BID PO Last administered on 07/16/16 08:39; Admin Dose 50 MG; Start 07/14/16 at 21:00 Hydrochlorothiazide (Hydrochlorothiazide) 25 mg DAILY PO Last administered on 08:40; Admin Dose 25 MG; Start 07/15/16 at 09:00 Acetaminophen/ Hydrocodone Bitart ([place] (7.5-325)) 1 tab Q4H PRN PO PAIN; Start 07/16/16 at 10:00 Assessment/Plan Chief Complaint/Hosp Course ASSESSMENT AND PLAN: 55-year-old female status post left total knee replacement secondary to osteoarthritis POD # 2. 1. Knee pain status post left total knee replacement - POD # 2. - Continue to follow primary care team's recommendations including pain control medications, physical therapy and labs. 2. Obesity: Monitor for now. 3. Hypothyroidism: Patient has been resumed on Synthroid medication. 4. Hypertension: Continue current blood pressure medicines as ordered by primary team. 5. Gastrointestinal prophylaxis: PPI. 6. Deep venous thrombosis prophylaxis: The patient is on high dose aspirin b.i.d. 7. History of gastroesophageal reflux disease - PPI. We will continue to follow along with you. Problems: ANJELICA GALLO Jul 16, 2016 13:02
[2016-07-16 19:00] VITALS: BP_SYST 131; BP_SYST 182; BP_DIAS 59; BP_DIAS 77; RESP 18; RESP 19
[2016-07-16 20:56] VITALS: BP 108/58; PULSE 74; RESP 18
[2016-07-17] MEDS: PANTOPRAZOLE (EC) 40 MG TAB PO SCH ×2 (06:05→17:18)
[2016-07-17] MEDS: LACTATED RINGER'S 1,000 ML IV SCH ×3 (06:06→23:19)
[2016-07-17] MEDS: traMADol 50 MG TAB PO SCH (06:06)
[2016-07-17] MEDS: LEVOTHYROXINE 50 MCG TAB PO SCH (06:06)
[2016-07-17 06:35] LABS: HEMATOCRIT 33.5 % (37.0-47.0); HEMOGLOBIN 10.9 g/dl (12.0-16.0)
[2016-07-17 06:40] LABS: POTASSIUM 4.1 mmol/L (3.5-5.1)
[2016-07-17 06:42] LABS: CREATININE 0.52 mg/dl (0.44-1.00)
[2016-07-17 06:43] LABS: CALCIUM 8.4 mg/dl (8.4-10.2)
[2016-07-17 07:51] VITALS: BP 132/65; RESP 15
[2016-07-17] MEDS: ASPIRIN (EC) 325 MG TAB PO SCH ×2 (08:20→19:57)
[2016-07-17] MEDS: DOCUSATE SODIUM 100 MG CAP PO SCH ×2 (08:20→19:58)
[2016-07-17] MEDS: CELECOXIB 200 MG CAP PO SCH (08:20)
[2016-07-17] MEDS: PREGABALIN 50 MG CAP PO SCH ×2 (08:20→19:58)
[2016-07-17] MEDS: AMLODIPINE 2.5 MG TAB PO SCH (08:22)
[2016-07-17] MEDS: HYDROCHLOROTHIAZIDE 25 MG TAB PO SCH (08:23)
[2016-07-17] MEDS: LOSARTAN 50 MG TAB PO SCH (08:23)
--- NOTE | 2016-07-17 10:17 | PN ---
Date/Time of Note Date/Time of Note DATE: 07/17/16 TIME: 10:15 Assessment/Plan Lines/Catheters IV Catheter Type (from Nrsg): Saline Lock Reis in Place (from Nrsg): No Assessment/Plan Assessment/Plan Stable POD #3, s/p left TKA -pain meds as needed -ASA/SCDs for DVT prophylaxis -OOB with PT -check AM labs -dressing changed -will plan to d/c home tomorrow Subjective 24 Hr Interval Summary No acute overnight events. Pain better controlled with norco. Having some dizziness with standing, likely secondary to pain medication. Progressing well with PT. Would like to go home tomorrow. Exam/Review of Systems Vital Signs Vitals Vital Signs Date Time Temp Pulse Resp B/P Pulse Ox O2 Delivery O2 Flow Rate FiO2 07/17/16 07:51 97.8 75 15 132/65 96 07/16/16 20:56 Room Air 07/14/16 23:28 2.0 Intake and Output 07/16/16 07/16/16 07/17/16 15:00 23:00 07:00 Intake Total 1120 ml 1100 ml Output Total 400 ml 900 ml Balance 720 ml 200 ml Exam Free Text/Dictation Dressing dry Incision clean, dry, and intact without redness or drainage Thigh soft 5/5 Quadriceps, Tibialis Anterior, EHL, Gastroc, Soleus, Peroneals Normal sensation Palpable DT/PT, CR <2 sec No distal edema Results Result Diagram: 07/17/16 0459 07/17/16 0459 ISAAK BALL PA-C Jul 17, 2016 10:17
--- NOTE | 2016-07-17 11:08 | CONS ---
Date/Time of Note Date/Time of Note DATE: 07/17/16 TIME: 11:07 Consult Date/Type/Reason Admit Date/Time Jul 14, 2016 at 10:47 Subjective Pt apparently had some dizziness this AM. Pt seen by ortho team. Objective Vital Signs Date Time Temp Pulse Resp B/P Pulse Ox O2 Delivery O2 Flow Rate FiO2 07/17/16 07:51 97.8 75 15 132/65 96 07/16/16 20:56 Room Air 07/14/16 23:28 2.0 Intake and Output 07/16/16 07/16/16 07/17/16 15:00 23:00 07:00 Intake Total 1120 ml 1100 ml Output Total 400 ml 900 ml Balance 720 ml 200 ml Exam GENERAL: The patient lying in bed, in no acute distress. HEENT: Pupils equal, round, react to light. Extraocular muscles intact. NECK: Supple, no thyromegaly. LUNGS: Clear to auscultation bilaterally. CARDIOVASCULAR: S1, S2 heard. No rubs or gallops. ABDOMEN: Soft, nontender, nondistended. Normal bowel sounds. No rebound or guarding. MUSCULOSKELETAL: less decreased range of motion of left lower extremity. No lower extremity edema bilaterally. NEUROLOGIC: No focal deficits. Results/Medications Result Diagram: 07/17/16 0459 07/17/16 0459 Results 24 hrs Laboratory Tests Test 07/17/16 04:59 Hemoglobin 10.9 L Hematocrit 33.5 L Sodium Level 139 Potassium Level 4.1 Chloride Level 96 L Carbon Dioxide Level 35 H Anion Gap 12 Blood Urea Nitrogen 13 Creatinine 0.52 Glucose Level 146 Calcium Level 8.4 Medications Current Medications Amlodipine Besylate (Norvasc) 5 mg DAILY PO Last administered on 07/17/16 08:22 ; Admin Dose 5 MG; Start 07/15/16 at 09:00 Losartan Potassium 100 mg 100 mg DAILY PO Last administered on 07/17/16 08:23; Admin Dose 100 MG; Start 07/15/16 at 09:00 Lactated Ringer's (Lr) 1,000 ml @ 125 mls/hr Q8H IV Last administered on 06:11; Admin Dose 125 MLS/HR; Start 07/14/16 at 15:19 Celecoxib (Celebrex) 200 mg DAILY PO Last administered on 07/17/16 08:20; Admin Dose 200 MG; Start 07/15/16 at 09:00 Tramadol HCl (Ultram) 50 mg Q6 PO Last administered on 07/17/16 06:06; Admin Dose 50 MG; Start 07/14/16 at 12:00; Stop 07/17/16 at 11:59 Hydromorphone HCl (Dilaudid) 1 mg Q3H PRN IV PAIN LEVEL 8-10 Last administered on 07/15/16 22:47; Admin Dose 1 MG; Start 07/14/16 at 18:30 Ondansetron HCl (Zofran Inj) 4 mg Q6H PRN IV NAUSEA AND/OR VOMITING Last administered on 07/15/16 07:43; Admin Dose 4 MG; Start 07/14/16 at 18:30 Bisacodyl (Dulcolax Supp) 10 mg Q12H PRN [place] CONSTIPATION; Start 07/14/16 at 15: 30 Magnesium Hydroxide (Milk Of Mag) 30 ml BID PRN PO CONSTIPATION; Start at 15:30 Sodium Biphosphate/ Sodium Phosphate (Fleet Enema) 133 ml DAILY PRN [place] CONSTIPATION; Start 07/14/16 at 15:30 Docusate Sodium (Colace) 100 mg BID PO Last administered on 07/17/16 08:20; Admin Dose 100 MG; Start 07/14/16 at 21:00 Diphenhydramine HCl (Benadryl) 25 mg Q6H PRN PO PRURITUS; Start 07/14/16 at 18: 30 Aspirin (Ecotrin) 325 mg BID PO Last administered on 07/17/16 08:20; Admin Dose 325 MG; Start 07/15/16 at 09:00 Pantoprazole (Protonix Tab) 40 mg BID@,18 PO Last administered on 07/17/16 06 :05; Admin Dose 40 MG; Start 07/14/16 at 18:00 Pregabalin (Lyrica) 50 mg BID PO Last administered on 07/17/16 08:20; Admin Dose 50 MG; Start 07/14/16 at 21:00 Hydrochlorothiazide (Hydrochlorothiazide) 25 mg DAILY PO Last administered on 08:23; Admin Dose 25 MG; Start 07/15/16 at 09:00 Acetaminophen/ Hydrocodone Bitart ([place] (7.5-325)) 1 tab Q4H PRN PO PAIN; Start 07/16/16 at 10:00 Assessment/Plan Chief Complaint/Hosp Course ASSESSMENT AND PLAN: 55-year-old female status post left total knee replacement secondary to osteoarthritis POD # 3. 1. Knee pain status post left total knee replacement - POD # 3. - Continue to follow primary care team's recommendations including pain control medications, physical therapy and labs. 2. Obesity: Monitor for now. 3. Hypothyroidism: Patient has been resumed on Synthroid medication. 4. Hypertension: Continue current blood pressure medicines as ordered by primary team. 5. Gastrointestinal prophylaxis: PPI. 6. Deep venous thrombosis prophylaxis: The patient is on high dose aspirin b.i.d. 7. History of gastroesophageal reflux disease - PPI. We will continue to follow along with you. Problems: ANJELICA GALLO Jul 17, 2016 11:08
[2016-07-17] MEDS: HYDROCODONE/APAP (7.5/325) TAB PO PRN ×3 (12:19→23:36)
[2016-07-17 19:30] VITALS: BP 123/62; RESP 18
[2016-07-18] MEDS: LEVOTHYROXINE 50 MCG TAB PO SCH (05:12)
[2016-07-18] MEDS: PANTOPRAZOLE (EC) 40 MG TAB PO SCH (05:12)
[2016-07-18] MEDS: HYDROCODONE/APAP (7.5/325) TAB PO PRN ×2 (05:13→11:33)
[2016-07-18 05:29] LABS: HEMATOCRIT 33.1 % (37.0-47.0); HEMOGLOBIN 10.8 g/dl (12.0-16.0)
[2016-07-18 05:42] LABS: POTASSIUM 3.8 mmol/L (3.5-5.1)
[2016-07-18 05:45] LABS: CREATININE 0.49 mg/dl (0.44-1.00)
[2016-07-18 05:46] LABS: CALCIUM 8.3 mg/dl (8.4-10.2)
[2016-07-18] MEDS: LACTATED RINGER'S 1,000 ML IV SCH (07:19)
--- NOTE | 2016-07-18 08:21 | PN ---
Date/Time of Note Date/Time of Note DATE: 07/18/16 TIME: 08:19 Assessment/Plan Lines/Catheters IV Catheter Type (from Nrsg): Saline Lock Reis in Place (from Nrsg): No Assessment/Plan Assessment/Plan Stable POD #4, s/p left TKA -pain meds as needed -ASA/SCDs for DVT prophylaxis -OOB with PT -dressing changed -d/c home today -follow up in the office in 1 week Subjective 24 Hr Interval Summary No acute overnight events. Pain improved. Dizziness is resolving. Stable for discharge home today. Exam/Review of Systems Vital Signs Vitals Vital Signs Date Time Temp Pulse Resp B/P Pulse Ox O2 Delivery O2 Flow Rate FiO2 07/17/16 19:30 98.0 69 18 123/62 96 07/16/16 20:56 Room Air 07/14/16 23:28 2.0 Intake and Output 07/17/16 07/17/16 07/18/16 15:00 23:00 07:00 Intake Total 700 ml 950 ml Output Total 800 ml 940 ml Balance -100 ml 10 ml Exam Free Text/Dictation Dressing dry Incision clean, dry, and intact without redness or drainage Thigh soft 5/5 Quadriceps, Tibialis Anterior, EHL, Gastroc, Soleus, Peroneals Normal sensation Palpable DT/PT, CR <2 sec No distal edema Results Result Diagram: 07/18/16 0445 07/18/16 0440 ISAAK BALL PA-C Jul 18, 2016 08:21
[2016-07-18] MEDS: ASPIRIN (EC) 325 MG TAB PO SCH (08:46)
[2016-07-18] MEDS: CELECOXIB 200 MG CAP PO SCH (08:46)
[2016-07-18] MEDS: AMLODIPINE 2.5 MG TAB PO SCH (08:46)
[2016-07-18] MEDS: PREGABALIN 50 MG CAP PO SCH (08:46)
[2016-07-18] MEDS: DOCUSATE SODIUM 100 MG CAP PO SCH (08:46)
[2016-07-18] MEDS: LOSARTAN 50 MG TAB PO SCH (08:46)
[2016-07-18] MEDS: HYDROCHLOROTHIAZIDE 25 MG TAB PO SCH (08:47)
[2016-07-18 08:58] VITALS: BP 133/57; RESP 18
--- NOTE | 2016-07-18 11:36 | PN ---
Date/Time of Note Date/Time of Note DATE: 07/18/16 TIME: 11:34 Assessment/Plan VTE Prophylaxis VTE Prophylaxis Intervention: other (asa bidper ortho) Lines/Catheters IV Catheter Type (from Nrs): Saline Lock Urinary Cath still in place: No Assessment/Plan Assessment/Plan ASSESSMENT AND PLAN: 55-year-old female status post left total knee replacement secondary to osteoarthritis POD # 4. 1. Knee pain status post left total knee replacement - POD # 4. - Continue to follow primary care team's recommendations including pain control medications, physical therapy and labs. 2. Obesity: Monitor for now. 3. Hypothyroidism: Patient has been resumed on Synthroid medication. 4. Hypertension: now controlled, will ensure patient has prescriptions 5. Gastrointestinal prophylaxis: PPI. 6. Deep venous thrombosis prophylaxis: The patient is on high dose aspirin b.i.d. 7. History of gastroesophageal reflux disease - PPI. Stable for d/c from medical standpoint Subjective 24 Hr Interval Summary Free Text/Dictation doing well / planned for discharge today Exam/Review of Systems Vital Signs Vitals Vital Signs Date Time Temp Pulse Resp B/P Pulse Ox O2 Delivery O2 Flow Rate FiO2 07/18/16 08:58 98.0 77 18 133/57 96 07/16/16 20:56 Room Air 07/14/16 23:28 2.0 Intake and Output 07/17/16 07/17/16 07/18/16 15:00 23:00 07:00 Intake Total 700 ml 950 ml Output Total 800 ml 940 ml Balance -100 ml 10 ml Exam GENERAL: The patient lying in bed, in no acute distress. HEENT: Pupils equal, round, react to light. Extraocular muscles intact. NECK: Supple, no thyromegaly. LUNGS: Clear to auscultation bilaterally. CARDIOVASCULAR: S1, S2 heard. No rubs or gallops. ABDOMEN: Soft, nontender, nondistended. Normal bowel sounds. No rebound or guarding. MUSCULOSKELETAL: less decreased range of motion of left lower extremity. No lower extremity edema bilaterally. NEUROLOGIC: No focal deficits. Results Result Diagram: 07/18/16 0445 07/18/16 0440 Results 24 hrs Laboratory Tests Test 07/18/16 04:40 07/18/16 04:45 Sodium Level 135 Potassium Level 3.8 Chloride Level 94 L Carbon Dioxide Level 33 H Anion Gap 12 Blood Urea Nitrogen 12 Creatinine 0.49 Glucose Level 151 Calcium Level 8.3 L Hemoglobin 10.8 L Hematocrit 33.1 L Medications Medications Current Medications Amlodipine Besylate (Norvasc) 5 mg DAILY PO Last administered on 07/18/16 08:46 ; Admin Dose 5 MG; Start 07/15/16 at 09:00 Losartan Potassium 100 mg 100 mg DAILY PO Last administered on 07/18/16 08:46; Admin Dose 100 MG; Start 07/15/16 at 09:00 Lactated Ringer's (Lr) 1,000 ml @ 125 mls/hr Q8H IV Last administered on 06:11; Admin Dose 125 MLS/HR; Start 07/14/16 at 15:19 Celecoxib (Celebrex) 200 mg DAILY PO Last administered on 07/18/16 08:46; Admin Dose 200 MG; Start 07/15/16 at 09:00 Hydromorphone HCl (Dilaudid) 1 mg Q3H PRN IV PAIN LEVEL 8-10 Last administered on 07/15/16 22:47; Admin Dose 1 MG; Start 07/14/16 at 18:30 Ondansetron HCl (Zofran Inj) 4 mg Q6H PRN IV NAUSEA AND/OR VOMITING Last administered on 07/15/16 07:43; Admin Dose 4 MG; Start 07/14/16 at 18:30 Bisacodyl (Dulcolax Supp) 10 mg Q12H PRN [place] CONSTIPATION Last administered on 05:13; Admin Dose 10 MG; Start 07/14/16 at 15:30 Magnesium Hydroxide (Milk Of Mag) 30 ml BID PRN PO CONSTIPATION Last administered on 07/17/16 12:18; Admin Dose 30 ML; Start 07/14/16 at 15:30 Sodium Biphosphate/ Sodium Phosphate (Fleet Enema) 133 ml DAILY PRN [place] CONSTIPATION; Start 07/14/16 at 15:30 Docusate Sodium (Colace) 100 mg BID PO Last administered on 07/18/16 08:46; Admin Dose 100 MG; Start 07/14/16 at 21:00 Diphenhydramine HCl (Benadryl) 25 mg Q6H PRN PO PRURITUS; Start 07/14/16 at 18: 30 Aspirin (Ecotrin) 325 mg BID PO Last administered on 07/18/16 08:46; Admin Dose 325 MG; Start 07/15/16 at 09:00 Pantoprazole (Protonix Tab) 40 mg BID@,18 PO Last administered on 07/18/16 05 :12; Admin Dose 40 MG; Start 07/14/16 at 18:00 Pregabalin (Lyrica) 50 mg BID PO Last administered on 07/18/16 08:46; Admin Dose 50 MG; Start 07/14/16 at 21:00 Hydrochlorothiazide (Hydrochlorothiazide) 25 mg DAILY PO Last administered on 08:47; Admin Dose 25 MG; Start 07/15/16 at 09:00 Acetaminophen/ Hydrocodone Bitart ([place] (7.5-325)) 1 tab Q4H PRN PO PAIN Last administered on 07/18/16 11:33; Admin Dose 1 TAB; Start 07/16/16 at 10:00 LYNSEY DRIVER Jul 18, 2016 11:36
--- NOTE | 2016-07-19 05:02 | DS ---
DATE OF ADMISSION: 07/14/2016 DATE OF DISCHARGE: 07/18/2016 CONDITION ON DISCHARGE: Stable. ADMITTING DIAGNOSIS: Left knee osteoarthritis. DISCHARGE DIAGNOSIS: Status post left total knee arthroplasty. PROCEDURE PERFORMED: Left total knee arthroplasty. HOSPITAL COURSE: This is a 65-year-old female who was seen in the clinic initially complaining of l eft knee pain. She had undergone conservative modalities unsuccessfully and x-rays demonstrated adv anced osteoarthritis of the left knee. Given the x-ray findings, it was thought she would benefit f rom a left total knee arthroplasty. On 07/14/2016, the patient was admitted and taken to the operat ing room where she underwent a left total knee arthroplasty. There were no intraoperative complicat ions. The patient tolerated the procedure well. She was taken to the recovery room in stable condi tion. Pain was well controlled with oral pain medication. She was started on aspirin and SCDs for DVT prophylaxis. She remained hemodynamically stable and neurovascularly intact throughout her hosp ital stay. She began physical therapy on postoperative day 1 and was deemed stable for discharge on postoperative day #4. Prior to discharge, the incision was inspected and noted to be clean, dry an d intact. Dressing changes were done prior to patient going home. LABORATORY ANALYSIS: Hemoglobin 10.8, hematocrit 32.1. Chemistry panel was within normal limits. DISCHARGE MEDICATIONS: 1. [place] 7.5/325 mg. 2. Tramadol 50 mg. 3. Lyrica 50 mg. 4. Aspirin 325 mg. In addition, the patient is to resume all of her normal home medications. DISCHARGE INSTRUCTIONS: The patient will be discharged home in stable condition. She is to resume a normal diet. Activity includes weightbearing as tolerated on the left lower extremity. She began physical therapy with home health. She will be discharged home on the medications noted above and i s to resume all of her normal home medication. The patient is to call the office or go to the emerg ency room for any concerns including increased redness, swelling, drainage, fever or any concerns re garding the operation or site of incision. FOLLOWUP: The patient is to follow up in the office in 1 week. Dictated By: ISAAK ANTHONY/JACKIE Conf#: [id number] DID#: [id number]
== END 2016-07-18 12:25 | disposition home health service (06) | DRG 470 ==
LOC: REC 10:47 → EDSTATUS 12:00 → MS1 17:05
PROVIDERS: ADMIT Orthopaedic Surgery; ATTEND Orthopaedic Surgery
PROC: 0SRD0J9 Replacement of Left Knee Joint with Synthetic Substitute, Cemented, Open Approach (ICD-10-PCS; principal; 2016-07-14 13:00)
DX: M17.12 Unilateral primary osteoarthritis, left knee (principal); I10 Essential (primary) hypertension; E03.9 Hypothyroidism, unspecified; K21.9 Gastro-esophageal reflux disease without esophagitis; E66.9 Obesity, unspecified; Z68.32 Body mass index [BMI] 32.0-32.9, adult
CPT/HCPCS: 73560; 80048; 81003; 85014; 85018; 86850; 86900; 86901; 86920; 87081; 87086; 88304; 88311; 97110; 97116; 97162; 97167; 97530; Z7610; C1776; C9290; J0131; J0171; J0330; J0690; J0697; J0735; J1100; J1170; J1885; J2250; J2274; J2405; J2765; J3010; J3370; J7120

== ENCOUNTER → 2016-07-25 | Outpatient (CLI) | payer OTHER ==
[~2016-07-25] MED LIST changes: +AMLO2.5T78 PO; +ASPI325T32 PO; -BUPIVACAINE LIPOSOME/PF 266 MG/20 ML VIAL INFIL ONE; -CEFAZOLIN 2GM/50 ML (PMX) 50 ML X1 BEFORE INCISION IVPB ONE; -CELECOXIB 400 MG PO X1 DOSE PO ONE; -EXPAREL NOTE (BUPIVICAINE LIPOSOMAL) XX SCH; +HYDR-905 PO; -LACTATED RINGER'S 1,000 ML IV SCH; +LEVO50TA74 PO; +LOSA1TAB20 PO; +OMEP20CA16 PO; -PAIN COCKTAIL-CEFUROXIME IRR ONE; +PREG50CA PO; -PREGABALIN 300 MG PO X1 PO ONE; -SOD CHLORIDE 0.9% IV ONE; -SOD CHLORIDE 0.9% IVPB ONE; +TRAM50TA2 PO; -TRANEXAMIC ACID IV ONE; -TRANEXAMIC ACID IVPB ONE; -oxyCODONE (CR) 10 MG TAB [oxyCONTIN] X1 DOSE PO ONE; -traMADOL 50 MG TAB X 1 DOSE PO ONE
--- NOTE | 2016-07-25 12:22 | RADRPT ---
PROCEDURE: XR Left Knee. CLINICAL INDICATION: Left knee pain. Postop. TECHNIQUE: Two views. Frontal and lateral. COMPARISON: 07/14/2016. FINDINGS: There is no fracture or dislocation. Anterior skin irina are noted. Surgical drain has been removed. There is a total left knee arthroplasty which appears satisfactory. There is no lytic or blastic lesion. There is no joint effusion. IMPRESSION: 1. Satisfactory postoperative appearance of the left knee. RPTAT: QQ .Kike Vivar MD, MD Date Time Electronically viewed and signed by .Kike Vivar MD, on 07/25/2016 12:22 .R/
--- NOTE | 2016-07-25 21:04 | HKNOTE ---
DATE OF SERVICE: 07/25/2016 INTERVAL HISTORY: The patient presents today for her first postoperative evaluation. She is 10 days status post left total knee arthroplasty. She is doing well overall. She has been taking aspirin twice daily as recommended. Her pain has been mild. She is ambulating with her front-wheel walker. She denies any fevers or chills. She has not begun home health physical therapy at this point yet, but the nurses have come to her house. She presents today for her first postoperative evaluation. PHYSICAL EXAMINATION: On exam today, she is alert and oriented x4 and in no acute distress. She is ambulating with a front-wheel walker. Exam of the incision demonstrates it to be clean, dry and intact. Saira are in place. There is no erythema or warmth. There is no significant soft-tissue swelling. Homans sign is negative. Compartments are soft. Range of motion is 0 to 90 degrees. She is neurovascularly intact distally. IMAGING: X-rays of the left knee were obtained today and reviewed by me. They demonstrate good anatomic alignment with no fracture or dislocation identified. ASSESSMENT: Ten days status post left total knee arthroplasty, doing well. PLAN: The saira were removed today, and the Steri-Strips were applied. She is to begin physical therapy with home health and transition to an outpatient physical therapy program. Additionally, she is to continue taking aspirin 325 mg twice daily for 6 weeks from the date of her surgery. We will see her back in 4 weeks for a repeat evaluation. She is to call the office in the meantime if she has any concerns. Dictated By: ISAAK RINCON for KRISTYN ANTHONY/JACKIE Conf#: [id number] DID#: [id number] MTDD
== END | disposition home or self-care (01) ==
LOC: HKI 09:51
PROVIDERS: ATTEND Orthopaedic Surgery
DX: Z47.1 Aftercare following joint replacement surgery (principal); Z96.652 Presence of left artificial knee joint

== ENCOUNTER → 2016-08-22 | Outpatient (CLI) | payer OTHER | END | disposition home or self-care (01) | LOC: HKI 09:20 | PROVIDERS: ATTEND Orthopaedic Surgery | DX: Z47.1 Aftercare following joint replacement surgery (principal); M17.12 Unilateral primary osteoarthritis, left knee; Z96.652 Presence of left artificial knee joint ==

== ENCOUNTER → 2016-09-23 | Outpatient (CLI) | payer OTHER ==
--- NOTE | 2016-09-23 12:16 | RADRPT ---
PROCEDURE: XR left knee. CLINICAL INDICATION: Knee pain. TECHNIQUE: AP weightbearing, lateral weightbearing and sunrise views are available for review. COMPARISON: No comparison available FINDINGS: There is a total knee replacement. There is no evidence of loosening of the prosthesis. There is no evidence of hardware failure. The osseous structures are normal in mineralization, architecture and alignment No acute fracture or dislocation is seen.No osseous lesions are identified. The soft tiss ues are unremarkable . IMPRESSION: Unremarkable total knee replacement. RPTAT: HGDB .Bandar Chery MD, MD Date Time Electronically viewed and signed by .Bandar Chery MD, MD on 09/23/2016 12:15 .B/
== END | disposition home or self-care (01) ==
LOC: HKI 08:40
PROVIDERS: ATTEND Orthopaedic Surgery
DX: Z47.1 Aftercare following joint replacement surgery (principal); M17.12 Unilateral primary osteoarthritis, left knee; Z96.652 Presence of left artificial knee joint

== ENCOUNTER → 2016-11-28 | Outpatient (CLI) | END | disposition home or self-care (01) | DX: Z47.89 Encounter for other orthopedic aftercare (principal); Z96.653 Presence of artificial knee joint, bilateral | CPT/HCPCS: 73562; Z7500 ==

== ENCOUNTER 2017-02-13 18:52 | Observation (INO) | payer MEDICARE, OTHER ==
[~2017-02-13] VITALS: Ht 154.9 cm; Wt 80.0 kg
[2017-02-13 18:54] VITALS: Ht 154.9 cm; Wt 80.0 kg
[2017-02-13] MEDS ORDERED: ASPIRIN 325 MG TAB PO STA (19:14)
[2017-02-13] MEDS ORDERED: NITROGLYCERIN 2% 1 GM OINT PKT TD STA (19:14)
[2017-02-13] MEDS ORDERED: NITROGLYCERIN (SL) 0.4 MG TAB SL PRN ×2 (19:30→20:30)
[2017-02-13 19:41] LABS: BASOPHIL # 0.1 10^3/ul (0.0-0.1); EOSINOPHILS # 0.2 10^3/ul (0.0-0.5); EOSINOPHILS % 3.4 % (0.0-7.0); HEMATOCRIT 38.9 % (37.0-47.0); HEMOGLOBIN 12.5 g/dl (12.0-16.0); LYMPHOCYTES # 2.4 10^3/ul (0.8-2.9); LYMPHOCYTES % 33.7 % (15.0-51.0); MEAN CORPUSCULAR HEMOGLOBIN 26.6 pg (29.0-33.0); MEAN CORPUSCULAR HGB CONC 32.1 g/dl (32.0-37.0); MEAN CORPUSCULAR VOLUME 82.8 fl (82.0-101.0); MEAN PLATELET VOLUME 10.1 fl (7.4-10.4); MONOCYTE # 0.5 10^3/ul (0.3-0.9); MONOCYTES % 6.7 % (0.0-11.0); NEUTROPHIL # 3.9 10^3/ul (1.6-7.5); NEUTROPHILS % 54.8 % (39.0-77.0); PLATELET COUNT 265 10^3/UL (140-415); RED CELL DISTRIBUTION WIDTH 14.6 % (11.5-14.5)
--- NOTE | 2017-02-13 19:50 | RADRPT ---
PROCEDURE: XR Chest. CLINICAL INDICATION: Chest pain. TECHNIQUE: Single frontal view. COMPARISON: None. FINDINGS: The lungs are clear. The heart size is normal. There is calcification in the aorta consistent with atherosclerosis. There is no pleural effusion. There is no pneumothorax. IMPRESSION: 1. Atherosclerosis. 2. Otherwise unremarkable chest radiograph. RPTAT: QQ .Kike Vivar MD, MD Date Time Electronically viewed and signed by .Kike Vivar MD, MD on 02/13/2017 19:50 .R/
[2017-02-13] MEDS ORDERED: AMLO5TAB4 PO (19:59)
--- NOTE | 2017-02-13 19:59 | ERD ---
ER Documentation Chief Complaint Chief Complaint chest pain on and off [id number] HPI This 66-year-old female complains of chest pain for 1 month is getting progressively worse. She states for the past 3 days chest pain is getting more severe. She describes as a pressure sensation in the center of her chest but does not have any other associated symptoms such as shortness of breath diaphoresis nausea or dizziness. The patient denies any medical problems. The patient went to her primary care physician today and sent her here for evaluation and likely admit to the hospital. The patient is not a very good historian. She says nothing seems to make the pain worse or better and sometimes the pain is therefore a day sometimes is there for minutes sometimes his hours. The pain does not radiate and nothing seems to make it worse or better. ROS All systems reviewed and are negative except as per history of present illness. Medications Home Meds Active Scripts Tramadol HCl (Tramadol HCl) 50 Mg Tablet, 50 MG PO Q6 for 30 Days, #60 TAB Prov:ISAAK BALL PA-C 07/15/16 Reported Medications Amlodipine Besylate* (Norvasc*) 5 Mg Tablet, 5 MG PO DAILY, TAB 02/13/17 Omeprazole* (Omeprazole*) 20 Mg Capsule., 20 MG PO DAILY, #30 CAP 07/14/16 Levothyroxine Sodium* (Levothyroxine Sodium*) 50 Mcg Tablet, 50 MCG PO BEFORE BREAKFAST, #30 TAB 07/14/16 Losartan-Hydrochlorothiazide (Losartan-HCTZ) 100-25 Mg Tab, 1 TAB PO DAILY, TAB 07/14/16 Discontinued Reported Medications Amlodipine Besylate* (Amlodipine Besylate*) 2.5 Mg Tablet, 5 MG PO DAILY, #30 TAB 07/14/16 Discontinued Scripts Hydrocodone/Acetaminophen ([place] 7.5-325 Tablet) 1 Each Tablet, 1 EACH PO Q6 Y for PAIN, #60 TAB Prov:ISAAK BALL PA-C 07/15/16 Pregabalin* (Lyrica*) 50 Mg Capsule, 50 MG PO BID for 30 Days, #60 CAP Prov:ISAAK BALL PA-C 07/15/16 Aspirin (Aspir-Nicole) 325 Mg Tablet., 325 MG PO BID for 42 Days, #84 Prov:ISAAK BALLC 07/15/16 Allergies Allergies: Coded Allergies: No Known Allergy (Unverified , 02/13/17) PER [facility]EE[facility] PRE-OP ORDER PMhx/Soc History of Surgery: Yes (RT KNEE, VARICOSE VEIN LASER SX) Anesthesia Reaction: No Hx Neurological Disorder: No Hx Respiratory Disorders: No Hx Cardiac Disorders: Yes (HTN) Hx Psychiatric Problems: No Hx Miscellaneous Medical Probl: Yes (obesity, OA, hypothyroid, HTN, GERD) Hx Alcohol Use: No Hx Substance Use: No Hx Tobacco Use: No Smoking Status: Never smoker FmHx Family History: No coronary disease Physical Exam Vitals Vital Signs Date Time Temp Pulse Resp B/P Pulse Ox O2 Delivery O2 Flow Rate FiO2 02/13/17 19:54 83 139/83 02/13/17 19:48 75 17 156/79 98 Room Air 02/13/17 18:54 98.7 84 16 177/91 100 Physical Exam Const: Well-developed, well-nourished Head: Atraumatic, normocephalic Eyes: Normal Conjunctiva, PERRLA, EOMI, normal sclera, no nystagmus ENT: Normal External Ears, Nose and Mouth, moist mucus membranes. Neck: Full range of motion. No meningismus, no lymphadenopathy. Resp: Clear to auscultation bilaterally, no wheezing, rhonchi, rales Cardio: Regular rate and rhythm, no murmurs, S1 S2 present Abd: Soft, non tender x 4, non distended. Normal bowel sounds, no guarding or rebound, no pulsitile abdominal masses or bruits Skin: No petechiae or rashes, no ecchymosis , no maculopapular rash Back: No midline or flank tenderness Ext: No cyanosis, or edema, FROM x 4, normal inspection, neurovascularly intact x 4 Neur: Awake and alert, STR 5/5 x 4, sensation intact x 4, no focal findings, cerebellum intact Psych: Normal Mood and Affect Result Diagram: 02/13/171926 Results 24 hrs Laboratory Tests Test 02/13/17 19:27 White Blood Count 7.010^3/ul Red Blood Count 4.7010^6/ul Hemoglobin 12.5g/dl Hematocrit 38.9% Mean Corpuscular Volume 82.8fl Mean Corpuscular Hemoglobin 26.6pg Mean Corpuscular Hemoglobin Concent 32.1g/dl Red Cell Distribution Width 14.6% Platelet Count 62583^3/UL Mean Platelet Volume 10.1fl Neutrophils % 54.8% Lymphocytes % 33.7% Monocytes % 6.7% Eosinophils % 3.4% Basophils % 1.0% Nucleated Red Blood Cells % 0.0/100WBC Neutrophils # 3.910^3/ul Lymphocytes # 2.410^3/ul Monocytes # 0.510^3/ul Eosinophils # 0.210^3/ul Basophils # 0.110^3/ul Nucleated Red Blood Cells # 0.010^3/ul Current Medications Medications (Trade) Dose Ordered Sig/Husam Route PRN Reason Start Time Stop Time Status Last Admin Dose Admin Aspirin (Aspirin) 325 mg ONCE STAT PO 02/13/17 19:14 02/13/17 19:16 DC 02/13/17 19:43 Nitroglycerin (Nitroglycerin 2% Oint) 1 inch ONCE STAT TD 02/13/17 19:14 02/13/17 19:16 DC Nitroglycerin (Nitroglycerin (Sl Tab) 0.4 Mg) 1 tab Q5M UP TO 3 DOSES PRN SL CHEST PAIN 02/13/17 19:30 02/13/17 19:45 Procedures/MDM EKG: Rate/Rhythm: Normal Sinus Rhythm,NL intervals QRS, ST, QT: NORMAL NC, QRS, QT] Impression: NORMAL EKG Patient's symptoms are concerning for cardiac cause will require inpatient workup and continuous monitoring. Further w/u for ischemia, arrhythmia, PE or dissection will be deferred to the inpatient team. Accepting Care Team: Current data and ongoing care discussed. Time: Time of admission Primary Provider: [XOXOXO] Consulting: [XOXOXO] Outstanding Data: none PROCEDURE: XR Chest. CLINICAL INDICATION: Chest pain. TECHNIQUE: Single frontal view. COMPARISON: None. FINDINGS: The lungs are clear. The heart size is normal. There is calcification in the aorta consistent with atherosclerosis. There is no pleural effusion. There is no pneumothorax. IMPRESSION: 1. Atherosclerosis. 2. Otherwise unremarkable chest radiograph. RPTAT: QQ .Kike Rice, MD, MD Date Time Electronically viewed and signed by .Kike Vivar MD, on 02/13/2017 19:50 .R/ CC: BALAJI GARCIA DO Departure Diagnosis: Primary Impression: Chest pain Chest pain type: unspecified Qualified Code: R07.9 - Chest pain, unspecified type Condition: Stable BALAJI GARCIA DO Feb 13, 2017 19:59
[2017-02-13 20:02] LABS: ALANINE AMINOTRANSFERASE 34 IU/L (13-69); ALBUMIN 4.8 g/dl (3.3-4.9); ALBUMIN/GLOBULIN RATIO 1.54; ALKALINE PHOSPHATASE 107 IU/L (42-121); ANION GAP 17 (8-16); ASPARTATE AMINO TRANSFERASE 26 IU/L (15-46); BILIRUBIN,INDIRECT 0.9 mg/dl (0-1.1); BILIRUBIN,TOTAL 0.9 mg/dl (0.2-1.3); BLOOD UREA NITROGEN 11 mg/dl (7-20); CALCIUM 9.2 mg/dl (8.4-10.2); CARBON DIOXIDE 30 mmol/L (21-31); CHLORIDE 100 mmol/L (97-110); CREATININE 0.55 mg/dl (0.44-1.00); GLUCOSE 122 mg/dl (70-220); POTASSIUM 3.5 mmol/L (3.5-5.1); SODIUM 143 mmol/L (135-144); TOTAL PROTEIN 7.9 g/dl (6.1-8.1)
[2017-02-13 20:26] LABS: TROPONIN-I < 0.012 ng/ml (0.00-0.12)
[2017-02-13] MEDS ORDERED: ACETAMINOPHEN 325 MG TAB PO PRN ×2 (20:30)
[2017-02-13] MEDS ORDERED: BISACODYL (EC) 5 MG TAB PO PRN (20:30)
[2017-02-13] MEDS ORDERED: ONDANSETRON 4 MG INJ IV PRN ×2 (20:30)
[2017-02-13] MEDS ORDERED: DOCUSATE SODIUM 100 MG CAP PO PRN (20:30)
[2017-02-13] MEDS: AMLODIPINE 5 MG TAB PO SCH (20:30)
[2017-02-13] MEDS ORDERED: NACL 0.9% 3 ML SYG IV SCH (20:30)
[2017-02-13] MEDS: FAMOTIDINE 20 MG TAB PO SCH (21:00)
[2017-02-14] VITALS (9 sets, daily range): BP systolic 115–131; BP diastolic 61–82; PULSE 75–83; RESP 18; TEMP 98.1
--- NOTE | 2017-02-14 05:00 | HP ---
Date/Time of Note Date/Time of Note DATE: 02/14/17 TIME: 04:49 Assessment/Plan VTE Prophylaxis VTE Prophylaxis Intervention: SCD's Lines/Catheters IV Catheter Type (from Nrs): Saline Lock Assessment/Plan Chief Complaint/Hosp Course This is a 66-year-old female being admitted to the telemetry floor for: #1Chest pain: Rule out ACS versus angina. She did report improvement of her pain with sublingual nitro and Nitropaste. Patient reports episodes approximately 1 month. She denies any association of the pain to eating food. At the current time will trend cardiac enzymes 3. Will check echocardiogram in the a.m. Continue telemetry monitoring. I do feel it patient will benefit at the minimum from cardiac stress test however we will defer this to cardiology., Will consult cardiology. #2 hypertension: We will continue monitor patient's home blood pressure, will continue home medications of amlodipine and combination pill of losartan hydrochlorthiazide. #3 hypothyroidism: We will check a TSH, continue levothyroxine #4 obesity: We will check hemoglobin A1c, lipid panel, TSH as stated above #5 DVT GI prophylaxis: SCDs, acid hellen Further treatment strategy will be implemented as per the clinical course Problems: HPI/ROS Admit Date/Time Admit Date/Time Hx of Present Illness cc: chest pain x 1 month This 66-year-old female complains of chest pain for 1 month is getting progressively worse. She states for the past 3 days chest pain is getting more severe. She describes as a pressure sensation in the center of her chest but does not have any other associated symptoms such as shortness of breath diaphoresis nausea or dizziness. The patient denies any medical problems. The patient went to her primary care physician today and sent her here for evaluation and likely admit to the hospital. The patient is not a very good historian. She says nothing seems to make the pain worse or better and sometimes the pain is therefore a day sometimes is there for minutes sometimes his hours. The pain does not radiate and nothing seems to make it worse or better. She denies any association with food. Patient did report improvement of the pain with sublingual nitro as well as nitro paste. allergies: nkda meds: see mar ROS Const: As per HPI Eyes : No pain discharge or redness or change in visual acuity ENT: No pain, sore throat, congestion, congestion, dysphagia or discharge Respiratory: No shortness of breath, cough, sputum, wheezing, or pleuritic pain Cardiovascular: As per HPI GI : no change in appetite, abdominal pain, nausea, vomiting, diarrhea, constipation, or change in the color his stool Genitourinary: No dysuria, hematuria, flank pain , discharge or CVA tenderness Musculoskeletal: No joint pain, back pain, neck pain, restricted range of motion in neck or joints Skin: No rash, bruising or hives Neuro: No headache, dizziness, syncope, seizure, focal weakness Endocrine: No polyuria, polydipsia, temperature intolerance Psych: No hallucination, depression, anxiety or suicidal ideation PMH/Family/Social Past Medical History Hypertension, hypothyroidism Past Surgical History Bilateral knee replacements Family History Significant Family History: no pertinent family hx Social History Alcohol Use: none Smoking Status: Never smoker Drug Use: none Exam/Review of Systems Vital Signs Vitals Vital Signs Date Time Temp Pulse Resp B/P Pulse Ox O2 Delivery O2 Flow Rate FiO2 02/14/17 02:25 98.7 62 12 100/56 96 Room Air Exam Exam General: Patient is a obese female lying in bed in no acute distress HEENT: Atraumatic, normocephalic. The pupils are equal, round and reactive. Extraocular motor are intact Neck: Supple with full range of motion. No rigidity or meningismus Chest: Nontender Lungs: Clear to auscultation bilaterally no crackles rales or wheezing Heart: Normal S1-S2, Regular rhythm and rate. No overt murmur appreciated Abdomen: Soft , nontender, nondistended , bowel sounds are present. No guarding no rebound tenderness , No masses or organomegaly. No costovertebral temporal angle mass Extremities: Normal to inspection, no edema no cyanosis Neurologic: Normal mental status, speech normal, cranial nerves II through XII are intact, motor and sensory are intact, no focal weakness Additional Comments EKG: Rate/Rhythm: Normal Sinus Rhythm,NL intervals QRS, ST, QT: NORMAL MN, QRS, QT] Impression: NORMAL EKG PROCEDURE: XR Chest. CLINICAL INDICATION: Chest pain. TECHNIQUE: Single frontal view. COMPARISON: None. FINDINGS: The lungs are clear. The heart size is normal. There is calcification in the aorta consistent with atherosclerosis. There is no pleural effusion. There is no pneumothorax. IMPRESSION: 1. Atherosclerosis. 2. Otherwise unremarkable chest radiograph. RPTAT: QQ .Kike Vivar MD, Date Time Electronically viewed and signed by .Kike Vivar MD, on 02/13/2017 19:50 .R/ CC: BALAJI GARCIA DO Labs Result Diagram: 02/13/17192602/13/171926 Medications Medications Current Medications Ondansetron HCl (Zofran Inj) 4 mg Q6H PRN IV NAUSEA AND/OR VOMITING; Start at 20:30 Nitroglycerin (Nitroglycerin (Sl Tab) 0.4 Mg) 1 tab Q5M PRN SL CHEST PAIN; Start 02/13/17 at 20:30 Acetaminophen (Tylenol Tab) 650 mg Q6H PRN PO PAIN LEVEL 1-3 OR FEVER; Start 02/13/17 at 20:30 Docusate Sodium (Colace) 100 mg Q12H PRN PO CONSTIPATION; Start 02/13/17 at 20 :30 Bisacodyl (Dulcolax) 5 mg DAILY PRN PO CONSTIPATION; Start 02/13/17 at 20:30 Famotidine (Pepcid) 20 mg Q12 PO ; Start 02/13/17 at 21:00 Amlodipine Besylate (Norvasc) 5 mg DAILY PO ; Start 02/13/17 at 20:30 Losartan Potassium (Cozaar) 100 mg DAILY PO ; Start 02/14/17 at 09:00 Hydrochlorothiazide (Hydrochlorothiazide) 25 mg DAILY PO ; Start 02/14/17 at 09 :00 CASTRO MARTINEZ Feb 14, 2017 05:00
[2017-02-14 06:55] LABS: BASOPHIL # 0.1 10^3/ul (0.0-0.1); BASOPHILS % 0.9 % (0.0-2.0); EOSINOPHILS # 0.2 10^3/ul (0.0-0.5); EOSINOPHILS % 2.9 % (0.0-7.0); HEMATOCRIT 39.5 % (37.0-47.0); HEMOGLOBIN 12.5 g/dl (12.0-16.0); LYMPHOCYTES # 1.7 10^3/ul (0.8-2.9); LYMPHOCYTES % 25.2 % (15.0-51.0); MEAN CORPUSCULAR HEMOGLOBIN 26.3 pg (29.0-33.0); MEAN CORPUSCULAR HGB CONC 31.6 g/dl (32.0-37.0); MEAN CORPUSCULAR VOLUME 83.2 fl (82.0-101.0); MEAN PLATELET VOLUME 10.2 fl (7.4-10.4); MONOCYTE # 0.6 10^3/ul (0.3-0.9); NEUTROPHIL # 4.4 10^3/ul (1.6-7.5); NEUTROPHILS % 62.9 % (39.0-77.0); PLATELET COUNT 268 10^3/UL (140-415); RED BLOOD COUNT 4.75 10^6/ul (4.20-5.40); RED CELL DISTRIBUTION WIDTH 14.8 % (11.5-14.5); WHITE BLOOD COUNT 6.9 10^3/ul (4.8-10.8)
[2017-02-14 07:22] LABS: CREATINE KINASE 102 IU/L (23-200)
[2017-02-14 07:25] LABS: ALBUMIN 4.5 g/dl (3.3-4.9); ALBUMIN/GLOBULIN RATIO 1.55; BILIRUBIN,INDIRECT 1.4 mg/dl (0-1.1); BILIRUBIN,TOTAL 1.4 mg/dl (0.2-1.3); CALCIUM 9.3 mg/dl (8.4-10.2); CHOL/HDL RATIO 2.9 RATIO; CREATININE 0.57 mg/dl (0.44-1.00); POTASSIUM 4.1 mmol/L (3.5-5.1); TOTAL PROTEIN 7.4 g/dl (6.1-8.1)
[2017-02-14 07:39] LABS: TROPONIN-I < 0.012 ng/ml (0.00-0.12)
[2017-02-14] MEDS: LEVOTHYROXINE 50 MCG TAB PO SCH (07:41)
[2017-02-14 08:24] LABS: THYROID STIMULATING HORMONE 5.76 MIU/L (0.465-4.680)
[2017-02-14] MEDS: LOSARTAN 50 MG TAB PO SCH (09:34)
[2017-02-14] MEDS: HYDROCHLOROTHIAZIDE 25 MG TAB PO SCH (09:35)
[2017-02-14] MEDS: AMLODIPINE 5 MG TAB PO SCH (09:35)
[2017-02-14] MEDS: FAMOTIDINE 20 MG TAB PO SCH ×2 (09:36→20:48)
[2017-02-14 13:15] LABS: CREATINE KINASE 87 IU/L (23-200)
[2017-02-14 13:28] LABS: CK-MB 0.91 ng/ml (0.0-2.4)
[2017-02-14 13:29] LABS: TROPONIN-I < 0.012 ng/ml (0.00-0.12)
--- NOTE | 2017-02-14 16:48 | CONS ---
Date/Time of Note Date/Time of Note DATE: 02/14/17 TIME: 16:43 Assessment/Plan Assessment/Plan Chief Complaint/Hosp Course 1. chest pain: R/O ACS R/O PE given inactivity 2. HTN: stable 3. dyslipidemia 4. obesity 5. OA s/ p recent knee surgery: Recommendations: We will continue with aspirin. Echocardiogram will be checked. Blood pressure control will be continued. I will order a CT pulmonary angiogram to rule out PE given her recent surgery and inactivity. If CT is negative for PE is Lexiscan assertive will be ordered for tomorrow to be done through the second obstructive coronary artery disease. Thank you for his referral. I will continue to follow along with you. GRACIE LERMA MD [facility] Problems: Consultation Date/Type/Reason Admit Date/Time Date of Consultation: Feb 14, 2017 Type of Consultation: CARDIOLOGY Reason for Consultation CHEST PAIN Referring Provider: CASTRO MARTINEZ Hx of Present Illness CC: Chest pain HPI: Dear Dr. Martinez. Thank you for his referral. This is a 66-year-old female with history of hypertension who was admitted because of chest pain. Patient has complaint of chest pain almost constant with the word the past month. She could not explain any exacerbating or relieving factor to me. No palpitation. Denies any dyspnea to me. It is not pleuritic either. Patient has been has been so far cardiac enzymes are negative. Pain has improved now it has not completely resolved. Discussed with the patient does discuss with staff discussed with a physician and old chart were reviewed. Patient has had knee surgery done a few months ago and recently has become more active but overall has not been very active. Medications were reviewed as per medical reconciliation sheet. Social history: Patient does not smoke or drink. Family history: Denies any early coronary artery disease Allergies no known drug allergies. Review of system as above mentioned only. Patient also has had "stress" She has some knee pain. She denies all except per above. Social History Alcohol Use: none Smoking Status: Never smoker Drug Use: none Exam/Review of Systems Vital Signs Vitals Vital Signs Date Time Temp Pulse Resp B/P Pulse Ox O2 Delivery O2 Flow Rate FiO2 02/14/17 13:58 99.4 83 18 131/68 95 Room Air Exam General: no acute distress HEENT: NC/AT. pupils are equal. round. NECK: NO JVD. no stridor. CV: RRR. systolic murmur; no gallop or rubs. PULM: no wheezing or rhonchi. GI: SOFT, NT, ND, no rebound or guarding Extremity: trace B/L LE edema. no clubbing. neuro: awake and alert, OX3. Psych: calm and pleasant rectal: deferred : normal ECG NSR normal Results Result Diagram: 02/14/1745 02/14/1745 Results 24 hrs Laboratory Tests Test 02/13/17 19:27 02/14/17 05:45 02/14/17 12:38 White Blood Count 7.0 6.9 Red Blood Count 4.70 4.75 Hemoglobin 12.5 12.5 Hematocrit 38.9 39.5 Mean Corpuscular Volume 82.8 83.2 Mean Corpuscular Hemoglobin 26.6 L 26.3 L Mean Corpuscular Hemoglobin Concent 32.1 31.6 L Red Cell Distribution Width 14.6 H 14.8 H Platelet Count 265 268 Mean Platelet Volume 10.1 10.2 Neutrophils % 54.8 62.9 Lymphocytes % 33.7 25.2 Monocytes % 6.7 8.0 Eosinophils % 3.4 2.9 Basophils % 1.0 0.9 Nucleated Red Blood Cells % 0.0 0.0 Neutrophils # 3.9 4.4 Lymphocytes # 2.4 1.7 Monocytes # 0.5 0.6 Eosinophils # 0.2 0.2 Basophils # 0.1 0.1 Nucleated Red Blood Cells # 0.0 0.0 Sodium Level 143 144 Potassium Level 3.5 4.1 Chloride Level 100 100 Carbon Dioxide Level 30 31 Anion Gap 17 H 17 H Blood Urea Nitrogen 11 14 Creatinine 0.55 0.57 Glucose Level 122 118 Calcium Level 9.2 9.3 Total Bilirubin 0.9 1.4 H Direct Bilirubin 0.00 0.00 Indirect Bilirubin 0.9 1.4 H Aspartate Amino Transf (AST/SGOT) 26 24 Alanine Aminotransferase (ALT/SGPT) 34 26 Alkaline Phosphatase 107 88 Troponin I < 0.012 < 0.012 < 0.012 Total Protein 7.9 7.4 Albumin 4.8 4.5 Globulin 3.10 2.90 Albumin/Globulin Ratio 1.54 1.55 Hemoglobin A1c 6.5 H Creatine Kinase 102 87 Creatine Kinase Index 1.0 1.0 Creatinine Kinase MB (Mass) 1.00 0.91 Triglycerides Level 75 Cholesterol Level 176 LDL Cholesterol, Calculated 102 HDL Cholesterol 59 Cholesterol/HDL Ratio 2.9 Thyroid Stimulating Hormone (TSH) 5.760 H Medications Medications Current Medications Ondansetron HCl (Zofran Inj) 4 mg Q6H PRN IV NAUSEA AND/OR VOMITING; Start at 20:30 Nitroglycerin (Nitroglycerin (Sl Tab) 0.4 Mg) 1 tab Q5M PRN SL CHEST PAIN; Start 02/13/17 at 20:30 Acetaminophen (Tylenol Tab) 650 mg Q6H PRN PO PAIN LEVEL 1-3 OR FEVER; Start 02/13/17 at 20:30 Docusate Sodium (Colace) 100 mg Q12H PRN PO CONSTIPATION; Start 02/13/17 at 20 :30 Bisacodyl (Dulcolax) 5 mg DAILY PRN PO CONSTIPATION; Start 02/13/17 at 20:30 Famotidine (Pepcid) 20 mg Q12 PO Last administered on 02/14/17 09:36; Admin Dose 20 MG; Start 02/13/17 at 21:00 Amlodipine Besylate (Norvasc) 5 mg DAILY PO Last administered on 02/14/17 09: 35; Admin Dose 5 MG; Start 02/13/17 at 20:30 Losartan Potassium (Cozaar) 100 mg DAILY PO Last administered on 02/14/17 09: 34; Admin Dose 100 MG; Start 02/14/17 at 09:00 Hydrochlorothiazide (Hydrochlorothiazide) 25 mg DAILY PO Last administered on 02/14/17 09:35; Admin Dose 25 MG; Start 02/14/17 at 09:00 GRACIE LERMA MD Feb 14, 2017 16:48
--- NOTE | 2017-02-14 17:10 | PN ---
Date/Time of Note Date/Time of Note DATE: 02/14/17 TIME: 17:05 Assessment/Plan VTE Prophylaxis VTE Prophylaxis Intervention: SCD's Lines/Catheters IV Catheter Type (from Nrsg): Saline Lock Assessment/Plan Assessment/Plan 1. Chest pain r/o ACS versus anxiety vs PE vs angina - Cardiology on board and recommendations appreciated. Advised to check CTA to rule out PE and if negative plans for Lexiscan - ECHO ordered and results pending - Cardiac enzymes negative - Continue monitoring - Nitro/Morphine/O2 for pain 2. hypertension - Continue home medications - adjust as needed 3. Hypothyroidism - TSH slightly - Will advice to follow up with PCP when acute issue resolves for medication adjustment if needed 4. Obesity 5. Disposition - Continue monitoring in telemetry pending cardiac workup Subjective 24 Hr Interval Summary Free Text/Dictation Patient resting comfortably in bed. States she has been experiencing chest pain for the past month which has improved since admission and she worries is secondary to nerves. She had knee replacement 6 months ago and has been trying to walk more often but afraid she may fall. No new issues. Exam/Review of Systems Vital Signs Vitals Vital Signs Date Time Temp Pulse Resp B/P Pulse Ox O2 Delivery O2 Flow Rate FiO2 02/14/17 13:58 99.4 83 18 131/68 95 Room Air Exam General: Patient is a obese female lying in bed in no acute distress HEENT: Atraumatic, normocephalic. The pupils are equal, round and reactive. Extraocular motor are intact Neck: Supple with full range of motion. No rigidity or meningismus Lungs: Clear to auscultation bilaterally no crackles rales or wheezing Heart: Normal S1-S2, Regular rhythm and rate. No overt murmur appreciated Abdomen: Soft , nontender, nondistended , bowel sounds are present. No guarding no rebound tenderness Extremities: Normal to inspection, no edema no cyanosis Results Result Diagram: 02/14/17 0545 02/14/17 0545 Results 24 hrs Laboratory Tests Test 02/13/17 19:27 02/14/17 05:45 02/14/17 12:38 White Blood Count 7.0 6.9 Red Blood Count 4.70 4.75 Hemoglobin 12.5 12.5 Hematocrit 38.9 39.5 Mean Corpuscular Volume 82.8 83.2 Mean Corpuscular Hemoglobin 26.6 L 26.3 L Mean Corpuscular Hemoglobin Concent 32.1 31.6 L Red Cell Distribution Width 14.6 H 14.8 H Platelet Count 265 268 Mean Platelet Volume 10.1 10.2 Neutrophils % 54.8 62.9 Lymphocytes % 33.7 25.2 Monocytes % 6.7 8.0 Eosinophils % 3.4 2.9 Basophils % 1.0 0.9 Nucleated Red Blood Cells % 0.0 0.0 Neutrophils # 3.9 4.4 Lymphocytes # 2.4 1.7 Monocytes # 0.5 0.6 Eosinophils # 0.2 0.2 Basophils # 0.1 0.1 Nucleated Red Blood Cells # 0.0 0.0 Sodium Level 143 144 Potassium Level 3.5 4.1 Chloride Level 100 100 Carbon Dioxide Level 30 31 Anion Gap 17 H 17 H Blood Urea Nitrogen 11 14 Creatinine 0.55 0.57 Glucose Level 122 118 Calcium Level 9.2 9.3 Total Bilirubin 0.9 1.4 H Direct Bilirubin 0.00 0.00 Indirect Bilirubin 0.9 1.4 H Aspartate Amino Transf (AST/SGOT) 26 24 Alanine Aminotransferase (ALT/SGPT) 34 26 Alkaline Phosphatase 107 88 Troponin I < 0.012 < 0.012 < 0.012 Total Protein 7.9 7.4 Albumin 4.8 4.5 Globulin 3.10 2.90 Albumin/Globulin Ratio 1.54 1.55 Hemoglobin A1c 6.5 H Creatine Kinase 102 87 Creatine Kinase Index 1.0 1.0 Creatinine Kinase MB (Mass) 1.00 0.91 Triglycerides Level 75 Cholesterol Level 176 LDL Cholesterol, Calculated 102 HDL Cholesterol 59 Cholesterol/HDL Ratio 2.9 Thyroid Stimulating Hormone (TSH) 5.760 H Medications Medications Current Medications Ondansetron HCl (Zofran Inj) 4 mg Q6H PRN IV NAUSEA AND/OR VOMITING; Start at 20:30 Nitroglycerin (Nitroglycerin (Sl Tab) 0.4 Mg) 1 tab Q5M PRN SL CHEST PAIN; Start 02/13/17 at 20:30 Acetaminophen (Tylenol Tab) 650 mg Q6H PRN PO PAIN LEVEL 1-3 OR FEVER; Start 02/13/17 at 20:30 Docusate Sodium (Colace) 100 mg Q12H PRN PO CONSTIPATION; Start 02/13/17 at 20 :30 Bisacodyl (Dulcolax) 5 mg DAILY PRN PO CONSTIPATION; Start 02/13/17 at 20:30 Famotidine (Pepcid) 20 mg Q12 PO Last administered on 02/14/17 09:36; Admin Dose 20 MG; Start 02/13/17 at 21:00 Amlodipine Besylate (Norvasc) 5 mg DAILY PO Last administered on 02/14/17 09: 35; Admin Dose 5 MG; Start 02/13/17 at 20:30 Losartan Potassium (Cozaar) 100 mg DAILY PO Last administered on 02/14/17 09: 34; Admin Dose 100 MG; Start 02/14/17 at 09:00 Hydrochlorothiazide (Hydrochlorothiazide) 25 mg DAILY PO Last administered on 02/14/17 09:35; Admin Dose 25 MG; Start 02/14/17 at 09:00 LIGIA LOUIS MD Feb 14, 2017 17:10
[2017-02-14] MEDS ORDERED: SOD CHLORIDE 0.9% 100 ML ONE (17:34)
[2017-02-14] MEDS ORDERED: IOHEXOL 350MG/ML 50 ML BTL ONE (17:34)
[2017-02-14] MEDS ORDERED: IOHEXOL 100 ML ONE (17:34)
[2017-02-15] VITALS (11 sets, daily range): BP systolic 93–133; BP diastolic 50–82; PULSE 63–86; RESP 17–19
[2017-02-15] MEDS: LEVOTHYROXINE 50 MCG TAB PO SCH (06:13)
--- NOTE | 2017-02-15 07:33 | RADRPT ---
Echocardiogram Report Patient Name: NICK MASSEY Gender: Female Date: 1950 Study Date: 14-Feb-2017 Materials Handler: Greer Yu [facility] Location: 3301 Ref. Physician: CASTRO MARTINEZ Quality: Good Procedures: Transthoracic echocardiogram with complete 2D, M-Mode, and doppler examination. Indications: Congestive Heart Failure. 2D/M Mode Doppler Measurement Value Normal Ranges Measurement Value Normal Ranges LVIDd 2D 4.4 3.5 - 5.6 cm AV Peak Monico 1.8 m/sec LVIDs 2D 2.4 2.1 - 4.1 cm AV Peak PG 13.0 mmHg FS 2D 46.3 % LVOT Peak Monico 1.3 m/sec LVPWd 2D 1.1 0.6 - 1.1 cm LVOT Peak PG 7.0 mmHg IVSd 2D 1.1 0.6 - 1.1 cm MV E Peak Monico 0.6 m/sec IVS/LVPW 2D 1.0 MV A Peak Monico 0.8 m/sec AoR Diam 2D 2.5 2.0 - 3.7 cm MV E/A 0.7 LA/Ao 2D 1 0 - 1 MV Decel Time 225 msec EDV 2D 85.8 cm3 MV E/A 0.7 ESV 2D 13.3 cm3 TR Peak Monico 2.5 m/sec LA Dimen 2D 3.6 2.3 - 4.0 cm TR Peak PG 26.0 mmHg RVSP 36.0 mmHg Findings Left Ventricle: Normal left ventricular systolic function. Normal left ventricular cavity size. Mild concentric left ventricular hypertrophy. Ejection fraction is visually estimated at 65 %. Tissue Doppler/Mitral Doppler indices are consistent with impaired relaxation (Stage I diastolic dysfunction). Right Ventricle: Normal right ventricular size. Normal right ventricular systolic function. Left Atrium: The left atrium is normal in size. Right Atrium: The right atrium is normal in size. Mitral Valve: Normal appearance of the mitral valve. Mild mitral annular calcification. Trace mitral regurgitation. Aortic Valve: Normal appearance of the aortic valve. No significant aortic stenosis or insufficiency. Tricuspid Valve: Normal appearance of the tricuspid valve. Estimated peak PA systolic pressure 36 mmHg. There is mild tricuspid regurgitation. Pulmonic Valve: Pulmonic valve not well visualized. There is trace pulmonic regurgitation. Pericardium: Normal pericardium with no significant pericardial effusion. Aorta: Normal aortic root. IVC: Normal size and normal respiratory collapse consistent with normal right atrial pressure. Conclusions 1.Normal left ventricular systolic function. Normal left ventricular cavity size. Mild concentric left ventricular hypertrophy. Ejection fraction is visually estimated at 65 %. Tissue Doppler/Mitral Doppler indices are consistent with impaired relaxation (Stage I diastolic dysfunction). 2.Normal appearance of the mitral valve. Mild mitral annular calcification. Trace mitral regurgitation. 3.Normal appearance of the aortic valve. No significant aortic stenosis or insufficiency. 4.Normal appearance of the tricuspid valve. Estimated peak PA systolic pressure 36 mmHg. There is mild tricuspid regurgitation. Electronically Signed By: Natan Morin 15-Feb-2017 07:33:18 -0700 Patient Name: NICK MASSEY Study Date: 14-Feb-2017 [id number]
[2017-02-15] MEDS: AMLODIPINE 5 MG TAB PO SCH (07:53)
[2017-02-15] MEDS: FAMOTIDINE 20 MG TAB PO SCH ×2 (07:53→20:27)
[2017-02-15] MEDS: LOSARTAN 50 MG TAB PO SCH (07:53)
[2017-02-15] MEDS: HYDROCHLOROTHIAZIDE 25 MG TAB PO SCH (07:53)
--- NOTE | 2017-02-15 09:48 | CONS ---
Date/Time of Note Date/Time of Note DATE: 02/15/17 TIME: 09:46 Consult Date/Type/Reason Admit Date/Time Feb 13, 2017 at 20:05 Initial Consult Date 02/14/17 Type of Consultation: CARDIOLOGY Ordering Provider: CASTRO MARTINEZ Subjective cardiology follow up note: S: D.W staff and rhythm was reviewed. pt remains in NSR she with no more chest pain. no sob. : General: no acute distress HEENT: NC/AT. pupils are equal. round. NECK: NO JVD. no stridor. CV: RRR. systolic murmur; no gallop or rubs. PULM: no wheezing or rhonchi. GI: SOFT, NT, ND, no rebound or guarding Extremity: trace B/L LE edema. no clubbing. neuro: awake and alert, OX3. Psych: calm and pleasant rectal: deferred : normal ECG NSR normal Objective Vital Signs Date Time Temp Pulse Resp B/P Pulse Ox O2 Delivery O2 Flow Rate FiO2 02/15/17 08:35 76 02/15/17 07:48 97.8 18 133/66 96 02/14/17 13:58 Room Air Intake and Output 02/14/17 02/14/17 02/15/17 15:00 23:00 07:00 Intake Total 400 ml Balance 400 ml Results/Medications Result Diagram: 02/14/17 0545 02/14/17 0545 Results 24 hrs Laboratory Tests Test 02/14/17 12:38 Creatine Kinase 87 Creatine Kinase Index 1.0 Creatinine Kinase MB (Mass) 0.91 Troponin I < 0.012 Medications Current Medications Ondansetron HCl (Zofran Inj) 4 mg Q6H PRN IV NAUSEA AND/OR VOMITING; Start at 20:30 Nitroglycerin (Nitroglycerin (Sl Tab) 0.4 Mg) 1 tab Q5M PRN SL CHEST PAIN; Start 02/13/17 at 20:30 Acetaminophen (Tylenol Tab) 650 mg Q6H PRN PO PAIN LEVEL 1-3 OR FEVER; Start 02/13/17 at 20:30 Docusate Sodium (Colace) 100 mg Q12H PRN PO CONSTIPATION; Start 02/13/17 at 20 :30 Bisacodyl (Dulcolax) 5 mg DAILY PRN PO CONSTIPATION; Start 02/13/17 at 20:30 Famotidine (Pepcid) 20 mg Q12 PO Last administered on 02/15/17 07:53; Admin Dose 20 MG; Start 02/13/17 at 21:00 Amlodipine Besylate (Norvasc) 5 mg DAILY PO Last administered on 02/15/17 07: 53; Admin Dose 5 MG; Start 02/13/17 at 20:30 Losartan Potassium (Cozaar) 100 mg DAILY PO Last administered on 02/15/17 07: 53; Admin Dose 100 MG; Start 02/14/17 at 09:00 Hydrochlorothiazide (Hydrochlorothiazide) 25 mg DAILY PO Last administered on 02/15/17 07:53; Admin Dose 25 MG; Start 02/14/17 at 09:00 Assessment/Plan Chief Complaint/Hosp Course 1. chest pain: R/O ACS R/O PE given inactivity CTPA was already ordered but not done yet. 2. HTN: stable 3. dyslipidemia 4. obesity 5. OA s/ p recent knee surgery: Recommendations: We will continue with aspirin. Echocardiogram was reviewed which showed normal EF. I have ordered CT pulmonary angiogram to rule out PE given her recent surgery and inactivity. [email or web address] today Thank you for his referral. I will continue to follow along with you. GRACIE LERMA MD [facility] Problems: GRACIE LERMA MD Feb 15, 2017 09:48
[2017-02-15] MEDS ORDERED: REGADENOSON 0.4 MG/5 ML SYG ONE (10:04)
--- NOTE | 2017-02-15 12:59 | RADRPT ---
PROCEDURE: Lexiscan myocardial perfusion study CLINICAL INDICATION: 66 -year-old patient complaining of chest pain. TECHNIQUE: Lexiscan 0.4 mg intravenously separate acquisition gated myocardial perfusion SPECT using Tc 99m Myoview approximately 30.0 mCi intravenously at stress and Tc-99m Myoview, approximately 10. 2 mCi intravenously at rest was performed using the rest/stress sequence. Poststress Myoview SPECT i mages were obtained in the supine position. COMPARISON: No prior studies. FINDINGS: Perfusion images reveal no evidence of perfusion defects. Lexiscan post stress gated SPECT images demonstrate no wall motion abnormalities. IMPRESSION: 1. No evidence of perfusion defects. 2. No wall motion abnormalities. 3. The left ventricle ejection fraction at stress is greater than 70%. A call report was made to Dr. Morin at 12:58 p.m. on February 15, 2017 RPTAT: HH .Edna Will MD, Date Time Electronically viewed and signed by .Edna Will MD, on 02/15/2017 12:59 .L/
--- NOTE | 2017-02-15 14:36 | PN ---
Date/Time of Note Date/Time of Note DATE: 02/15/17 TIME: 14:29 Assessment/Plan VTE Prophylaxis VTE Prophylaxis Intervention: SCD's Lines/Catheters IV Catheter Type (from Nrsg): Peripheral IV Assessment/Plan Assessment/Plan 1. chest pain, negative troponin and unremarkable echo, awaiting for stress test 2. HTN, controlled 3. dyslipidemia, on ststin 4. obesity 5. OA s/ p recent knee surgery: 6. Hypothyroidism, on synthroid 7. DVT prophylaxis: SCDs Subjective 24 Hr Interval Summary Free Text/Dictation mild right upper chest Exam/Review of Systems Vital Signs Vitals Vital Signs Date Time Temp Pulse Resp B/P Pulse Ox O2 Delivery O2 Flow Rate FiO2 02/15/17 12:13 86 02/15/17 11:46 98.1 17 132/82 98 02/14/17 13:58 Room Air Intake and Output 02/14/17 02/14/17 02/15/17 15:00 23:00 07:00 Intake Total 400 ml Balance 400 ml Exam Constitutional: alert, obese, oriented, well developed Psych: nl mood/affect, no complaints Head: atraumatic, normocephalic Eyes: EOMI, PERRL, nl conjunctiva, nl lids ENMT: nl external ears & nose, nl lips & teeth, nl nasal mucosa & septum Neck: non-tender, supple Respiratory: clear to auscultation, normal air movement, No congested cough, No crackles/rales, No diminished breath sounds, No intercostal retraction, No labored breathing, No other, No respirations, No tactile fremitus, No wheezing Cardiovascular: nl pulses, regular rate and rhythm, No S3, No S4, No bruits, No diastolic murmur, No edema, No gallop, No irregular rhythm, No jugular venous distention (JVD), No murmurs/extra sounds, No other, No rub, No systolic murmur Gastrointestinal: nl liver, spleen, non-tender, soft, No ascites, No bowel sounds, No distended, No firm, No hepatomegaly, No mass , No other, No rebound or guarding, No splenomegaly, No surgical scars, No tender Musculoskeletal: nl extremities to inspection Extremities: normal pulses, No calf tenderness, No clubbing, No cyanosis, No edema, No other, No palpable cord, No pitting pedal edema, No tenderness Neurological: BACON SKIN LIFTER II-XII intact, nl mental status, nl speech, nl strength Skin: nl turgor Lymph: nl lymph nodes Results Result Diagram: 02/14/1754402/14/17544 Medications Medications Current Medications Ondansetron HCl (Zofran Inj) 4 mg Q6H PRN IV NAUSEA AND/OR VOMITING; Start at 20:30 Nitroglycerin (Nitroglycerin (Sl Tab) 0.4 Mg) 1 tab Q5M PRN SL CHEST PAIN; Start 02/13/17 at 20:30 Acetaminophen (Tylenol Tab) 650 mg Q6H PRN PO PAIN LEVEL 1-3 OR FEVER; Start 02/13/17 at 20:30 Docusate Sodium (Colace) 100 mg Q12H PRN PO CONSTIPATION; Start 02/13/17 at 20 :30 Bisacodyl (Dulcolax) 5 mg DAILY PRN PO CONSTIPATION; Start 02/13/17 at 20:30 Famotidine (Pepcid) 20 mg Q12 PO Last administered on 02/15/17 07:53; Admin Dose 20 MG; Start 02/13/17 at 21:00 Amlodipine Besylate (Norvasc) 5 mg DAILY PO Last administered on 02/15/17 07: 53; Admin Dose 5 MG; Start 02/13/17 at 20:30 Losartan Potassium (Cozaar) 100 mg DAILY PO Last administered on 02/15/17 07: 53; Admin Dose 100 MG; Start 02/14/17 at 09:00 Hydrochlorothiazide (Hydrochlorothiazide) 25 mg DAILY PO Last administered on 02/15/17 07:53; Admin Dose 25 MG; Start 02/14/17 at 09:00 MADDIE ONTIVEROS MD Feb 15, 2017 14:36
[2017-02-15] MEDS ORDERED: IOHEXOL 350MG/ML 50 ML BTL ONE (23:21)
[2017-02-15] MEDS ORDERED: SOD CHLORIDE 0.9% 100 ML ONE (23:21)
[2017-02-15] MEDS ORDERED: IOHEXOL 100 ML ONE (23:21)
[2017-02-16] VITALS (9 sets, daily range): BP systolic 118–129; BP diastolic 59–71; PULSE 60–114; RESP 18–19
--- NOTE | 2017-02-16 00:24 | RADRPT ---
PROCEDURE: CT Chest with IV contrast. CLINICAL INDICATION: Chest pain. TECHNIQUE: CT scan of the chest was performed on a multidetector scanner. The patient was scanned following the uncomplicated intravenous administration of 100 cc of Omnipaque 350 contrast. 3D, co ana paula and sagittal reformatted images were obtained from the axial source images. Images were review ed on a high-resolution PACS workstation. The total exam CTDlvol = 40 mGy and DLP = 388 mGy-cm. One of the following 3 dose reduction techniques were used: Automated exposure control; adjustment of th e mA and/or kV according to patient size; or use of iterative reconstruction technique. COMPARISON: Chest x-ray 12/14/2016 FINDINGS: No filling defects are identified within the pulmonary arteries to suggest pulmonary artery thrombos is. Thoracic aorta is normal caliber without aneurysm or dissection. There are mild atherosclerotic calcifications of the aortic arch. There is no mediastinal or hilar lymphadenopathy or mass. Heart is normal size. No pericardial fluid or thickening. Left lobe of the thyroid gland is heterogeneou s. There is mild dependent atelectasis. No focal infiltrate. There is no pleural effusion. There is no pneumothorax. There are no fractures. Chest wall is unremarkable. Imaging obtained through the upper abdomen demonstrates small gallstones within the gallbladder. The re is no evidence for biliary obstruction.. IMPRESSION: 1. No evidence for pulmonary embolus. 2. No aortic aneurysm or dissection. 3. Mild dependent atelectasis. No focal infiltrate. 4. No fractures. 5. Mild atherosclerotic calcifications of the aortic arch. 6. Cholelithiasis. 7. Heterogeneous left lobe of thyroid gland without gross selection. Correlation ultrasound is godfrey mmended when clinically appropriate. RPTAT: HMVK .Vinod Mg MD, MD Date Time Electronically viewed and signed by .Vinod Mg MD, MD on 02/16/2017 00:24 .K/
[2017-02-16] MEDS: LEVOTHYROXINE 50 MCG TAB PO SCH (06:23)
--- NOTE | 2017-02-16 08:12 | CONS ---
Date/Time of Note Date/Time of Note DATE: 02/16/17 TIME: 08:10 Consult Date/Type/Reason Admit Date/Time Feb 13, 2017 at 20:05 Initial Consult Date 02/14/17 Type of Consultation: CARDIOLOGY Ordering Provider: CASTRO MARTINEZ Subjective cardiology follow up note: S: D.W staff and rhythm was reviewed. pt remains in NSR she with no more chest pain. no sob. O: General: no acute distress HEENT: NC/AT. pupils are equal. round. NECK: NO JVD. no stridor. CV: RRR. systolic murmur; no gallop or rubs. PULM: no wheezing or rhonchi. GI: SOFT, NT, ND, no rebound or guarding Extremity: trace B/L LE edema. no clubbing. neuro: awake and alert, OX3. Psych: calm and pleasant rectal: deferred : normal ECG NSR normal LEXISCAN: NORMAL PERFUSION CT PA: NO PE. Objective Vital Signs Date Time Temp Pulse Resp B/P Pulse Ox O2 Delivery O2 Flow Rate FiO2 02/16/17 07:41 98.2 71 19 125/60 98 02/14/17 13:58 Room Air Intake and Output 02/15/17 02/15/17 02/16/17 15:00 23:00 07:00 Intake Total 650 ml 500 ml Balance 650 ml 500 ml Results/Medications Result Diagram: 02/14/17 0545 02/14/17 0545 Medications Current Medications Ondansetron HCl (Zofran Inj) 4 mg Q6H PRN IV NAUSEA AND/OR VOMITING; Start at 20:30 Nitroglycerin (Nitroglycerin (Sl Tab) 0.4 Mg) 1 tab Q5M PRN SL CHEST PAIN; Start 02/13/17 at 20:30 Acetaminophen (Tylenol Tab) 650 mg Q6H PRN PO PAIN LEVEL 1-3 OR FEVER; Start 02/13/17 at 20:30 Docusate Sodium (Colace) 100 mg Q12H PRN PO CONSTIPATION; Start 02/13/17 at 20 :30 Bisacodyl (Dulcolax) 5 mg DAILY PRN PO CONSTIPATION; Start 02/13/17 at 20:30 Famotidine (Pepcid) 20 mg Q12 PO Last administered on 02/15/17 20:27; Admin Dose 20 MG; Start 02/13/17 at 21:00 Amlodipine Besylate (Norvasc) 5 mg DAILY PO Last administered on 02/15/17 07: 53; Admin Dose 5 MG; Start 02/13/17 at 20:30 Losartan Potassium (Cozaar) 100 mg DAILY PO Last administered on 02/15/17 07: 53; Admin Dose 100 MG; Start 02/14/17 at 09:00 Hydrochlorothiazide (Hydrochlorothiazide) 25 mg DAILY PO Last administered on 02/15/17 07:53; Admin Dose 25 MG; Start 02/14/17 at 09:00 Assessment/Plan Chief Complaint/Hosp Course 1. chest pain: R/O ACS LEXISCAN was negative for ischemia CTPA did NOT show any PE 2. HTN: stable 3. dyslipidemia 4. obesity 5. OA s/ p recent knee surgery: Recommendations: We will continue with aspirin. Echocardiogram was reviewed which showed normal EF. OK to dc home from cardiac stand point. she has been scheduled to follow up with me in 2 weeks Thank you for his referral. GRACIE LERMA MD [facility] Problems: GRACIE LERMA MD Feb 16, 2017 08:12
[2017-02-16] MEDS: AMLODIPINE 5 MG TAB PO SCH (09:31)
[2017-02-16] MEDS: FAMOTIDINE 20 MG TAB PO SCH (09:32)
[2017-02-16] MEDS: LOSARTAN 50 MG TAB PO SCH (09:32)
[2017-02-16] MEDS: HYDROCHLOROTHIAZIDE 25 MG TAB PO SCH (09:32)
--- NOTE | 2017-02-16 10:52 | PN ---
Date/Time of Note Date/Time of Note DATE: 02/16/17 TIME: 10:51 Assessment/Plan VTE Prophylaxis VTE Prophylaxis Intervention: SCD's Lines/Catheters IV Catheter Type (from Nrsg): Saline Lock Assessment/Plan Assessment/Plan 1. chest pain, negative troponin and unremarkable echo, stress test negative 2. HTN, controlled 3. dyslipidemia, on ststin 4. obesity 5. OA s/ p recent knee surgery: 6. Hypothyroidism, on synthroid 7. DVT prophylaxis: SCDs Subjective 24 Hr Interval Summary Free Text/Dictation no chest pain, remained in NSR, BP stable Exam/Review of Systems Vital Signs Vitals Vital Signs Date Time Temp Pulse Resp B/P Pulse Ox O2 Delivery O2 Flow Rate FiO2 02/16/17 08:13 87 02/16/17 07:41 98.2 19 125/60 98 02/14/17 13:58 Room Air Intake and Output 02/15/17 02/15/17 02/16/17 15:00 23:00 07:00 Intake Total 650 ml 500 ml Balance 650 ml 500 ml Exam Constitutional: alert Psych: no complaints Head: normocephalic Eyes: nl conjunctiva ENMT: nl external ears & nose Neck: non-tender, supple Respiratory: clear to auscultation, normal air movement Cardiovascular: nl pulses, regular rate and rhythm Gastrointestinal: non-tender, soft Musculoskeletal: nl extremities to inspection Neurological: PROCESS ASSISTANT II-XII intact, nl mental status, nl speech, nl strength Results Result Diagram: 02/14/17 0545 02/14/1745 Medications Medications Current Medications Ondansetron HCl (Zofran Inj) 4 mg Q6H PRN IV NAUSEA AND/OR VOMITING; Start at 20:30 Nitroglycerin (Nitroglycerin (Sl Tab) 0.4 Mg) 1 tab Q5M PRN SL CHEST PAIN; Start 02/13/17 at 20:30 Acetaminophen (Tylenol Tab) 650 mg Q6H PRN PO PAIN LEVEL 1-3 OR FEVER; Start 02/13/17 at 20:30 Docusate Sodium (Colace) 100 mg Q12H PRN PO CONSTIPATION; Start 02/13/17 at 20 :30 Bisacodyl (Dulcolax) 5 mg DAILY PRN PO CONSTIPATION; Start 02/13/17 at 20:30 Famotidine (Pepcid) 20 mg Q12 PO Last administered on 02/16/17 09:32; Admin Dose 20 MG; Start 02/13/17 at 21:00 Amlodipine Besylate (Norvasc) 5 mg DAILY PO Last administered on 02/16/17 09: 31; Admin Dose 5 MG; Start 02/13/17 at 20:30 Losartan Potassium (Cozaar) 100 mg DAILY PO Last administered on 02/16/17 09: 32; Admin Dose 100 MG; Start 02/14/17 at 09:00 Hydrochlorothiazide (Hydrochlorothiazide) 25 mg DAILY PO Last administered on 02/16/17 09:32; Admin Dose 25 MG; Start 02/14/17 at 09:00 HENRY RIDLEY MD Feb 16, 2017 10:52
--- NOTE | 2017-02-16 10:54 | PDOCDIS ---
Discharge Instructions CONDITION Patient Condition: Good HOME CARE INSTRUCTIONS: Special Diet: LOW FAT/CHOL ACTIVITY: Activity Restrictions: Slowly Increase Activity Rest between Activity Avoid heavy lifting Avoid Heavy Housework FOLLOW UP/APPOINTMENTS Follow-up Plan follow up with her own PMD through HMO insurance in 1-2 week after discharge. Follow up with cardiology in 1-2 week after discharge HENRY RIDLEY MD Feb 16, 2017 10:54
--- NOTE | 2017-02-16 11:07 | DS ---
Date/Time of Note Date/Time of Note DATE: 02/16/17 TIME: 11:07 Discharge Summary Admission/Discharge Info Admit Date/Time Feb 13, 2017 at 20:05 Discharge Date/Time 02/16/2017 Discharge Diagnosis 1. Atypical chest pain unremarkable echo, stress test negative 2. HTN, controlled 3. dyslipidemia, on ststin 4. obesity 5. OA s/ p recent knee surgery: 6. Hypothyroidism, on synthroid Patient Condition: Good Consults Cardiology consult Dr.Arash guerrero Procedures lexiscan stress test negative , EF normal Hx of Present Illness 66-year-old female complains of chest pain for 1 month is getting progressively worse. She states for the past 3 days chest pain is getting more severe. She describes as a pressure sensation in the center of her chest but does not have any other associated symptoms such as shortness of breath diaphoresis nausea or dizziness. The patient denies any medical problems. The patient went to her primary care physician today and sent her here for evaluation and likely admit to the hospital. The patient is not a very good historian. She says nothing seems to make the pain worse or better and sometimes the pain is therefore a day sometimes is there for minutes sometimes his hours. The pain does not radiate and nothing seems to make it worse or better. She denies any association with food. Patient did report improvement of the pain with sublingual nitro as well as nitro paste. admitted for atypical chest pain and cardiology consultation. Hospital Course pt was evaluated by cardiology . His ECHO showed normal EF, no WMA- he chamorro sertial troponin and EKG negative, he subsequently has a Lexiscan myocardial perfusion scan negative for Ischemia, reperfusion. he gets discharged home with PCP Follow up Home Meds Active Scripts Tramadol HCl (Tramadol HCl) 50 Mg Tablet, 50 MG PO Q6 for 30 Days, #60 TAB Prov:ISAAK BALL PA-C 07/15/16 Reported Medications Amlodipine Besylate* (Norvasc*) 5 Mg Tablet, 5 MG PO DAILY, TAB 02/13/17 Omeprazole* (Omeprazole*) 20 Mg Capsule., 20 MG PO DAILY, #30 CAP 07/14/16 Levothyroxine Sodium* (Levothyroxine Sodium*) 50 Mcg Tablet, 50 MCG PO BEFORE BREAKFAST, #30 TAB 3/30/17 Losartan-Hydrochlorothiazide (Losartan-HCTZ) 100-25 Mg Tab, 1 TAB PO DAILY, TAB 07/14/16 Follow-up Plan follow up with her own PMD through HMO insurance in 1-2 week after discharge. Follow up with cardiology in 1-2 week after discharge Primary Care Provider Care Physician No Primary Time spent on discharge: > 30 minutes HENRY RIDLEY MD Feb 16, 2017 11:07 Losartan-Hydrochlorothiazide (Losartan-HCTZ) 100-25 Mg Tab, 1 TAB PO DAILY, TAB 07/14/16 Discontinued Reported Medications Amlodipine Besylate* (Amlodipine Besylate*) 2.5 Mg Tablet, 5 MG PO DAILY, #30 TAB 07/14/16 Discontinued Scripts Hydrocodone/Acetaminophen ([place] 7.5-325 Tablet) 1 Each Tablet, 1 EACH PO Q6 Y for PAIN, #60 TAB Prov:ISAAK BALL PA-C 07/15/16 Pregabalin* (Lyrica*) 50 Mg Capsule, 50 MG PO BID for 30 Days, #60 CAP Prov:ISAAK BALL PA-C 07/15/16 Aspirin (Aspir-Nicole) 325 Mg Tablet.dr 325 MG PO BID for 42 Days, #84 Prov:ISAAK BALL PA-C 07/15/16 Follow-up Plan follow up with her own PMD through HMO insurance in 1-2 week after discharge. Follow up with cardiology in 1-2 week after discharge Primary Care Provider Care Physician No Primary HENRY RIDLEY MD Feb 16, 2017 11:07
== END 2017-02-16 15:48 | disposition home or self-care (01) ==
LOC: E/R 18:52 → MS3 20:05 → MS4 02-14 19:15
PROVIDERS: ADMIT Family Medicine; ATTEND Family Medicine
DX: R07.9 Chest pain, unspecified (principal); I10 Essential (primary) hypertension; E03.9 Hypothyroidism, unspecified; I70.0 Atherosclerosis of aorta; E78.5 Hyperlipidemia, unspecified; E66.9 Obesity, unspecified; M19.90 Unspecified osteoarthritis, unspecified site; Z68.33 Body mass index [BMI] 33.0-33.9, adult; Z96.653 Presence of artificial knee joint, bilateral
CPT/HCPCS: 36415; 71010; 71275; 78452; 80053; 80061; 82550; 82553; 83036; 84443; 84484; 85025; 93005; 93017; 93306; 99285; A9500; A9505; G0378; J2785; Q9967; 99217